=== PATIENT | male | born 1985 | race African-American/Black ===

== ENCOUNTER 2024-10-02 19:29 | Inpatient (IN) | payer SELFPAY ==
[~2024-10-02] VITALS: Ht 160 cm; Wt 56.4 kg
--- NOTE | 2024-10-02 20:45 | DVH ---
EXAM: XY CHEST TWO VIEWS ROUTINE CLINICAL HISTORY: cp TECHNIQUE: Frontal and lateral views of the chest WID: COMPARISON: None FINDINGS: Lines and tubes: None Chest: The heart size and pulmonary vasculature is within normal limits. No pleural effusion, pneumothorax, or consolidation. The osseous structures are grossly intact. IMPRESSION: No acute cardiopulmonary abnormality.
[2024-10-02 20:46] LABS: Hematocrit 44.4 % (41.0-53.0); Hemoglobin 14.9 g/dL (13.5-17.5); Mean Corpuscular Hemoglobin 30.9 pg (28.0-32.0); Mean Corpuscular Volume 92.3 fL (80.0-100.0); Nucleated Red Blood Cells % 0.1 %
[2024-10-02 20:49] LABS: Potassium 4.0 mmol/L (3.5-5.1); Sodium 137 mmol/L (136-145)
[2024-10-02 20:50] LABS: Anion Gap 13 (5-15); Carbon Dioxide 26 mmol/L (20-31)
[2024-10-02 20:55] LABS: BUN/Creatinine Ratio 13.7 (10.0-20.0); Blood Urea Nitrogen 14 mg/dL (9-23); Glucose 100 mg/dL (74-106)
[2024-10-02 21:18] LABS: Calcium 10.9 mg/dL (8.7-10.4); Chloride 98 mmol/L (98-107)
--- NOTE | 2024-10-02 21:25 | ED.PDOC ---
History of Present Illness HPI Comments 39-year-old male who comes in with chief complaint of chest tightness with dizziness and weakness. The patient also states that his measured his blood pressure was significantly elevated. The patient has a history of hypertension but currently not taking any medications. All the symptoms seemed to have started today. He was able to ambulate into the emergency department's without any difficulty. Chief Complaint: High Blood Pressure Time Seen by MD: 19:41 Reviewed Notes: Nurses Notes, Medications, Allergies (No allergies to medications) Allergies: Coded Allergies: NO KNOWN ALLERGIES (Unverified , 10/02/24) Information Source: Patient Mode of Arrival: Ambulatory Severity: Moderate Timing: Hours Duration: Since onset Prehospital treatment: None Associated signs and symptoms Tightness with dizziness and weakness Past Medical History PAST MEDICAL HISTORY: HTN Surgical History: Denies all surgeries Family History Family History: Reviewed,noncontributory to illness, No family hx of Cancer, No family hx of DM, No family hx of Heart alysia, No family hx of HTN, No family hx ofKidney alysia, No family hx of Liver alysia, No family hx of Lung alysia, No family hx of Stroke Social History Smoker: Non-Smoker Alcohol: Occasionally Drugs: Denies Drug Use Lives In: Home Constitutional: reports: weakness; denies: chills, diaphoresis, fatigue, fever, malaise, sweats, others EENTM: denies: blurred vision, double vision, ear bleeding, ear discharge, ear drainage, ear pain, ear ringing, eye pain, eye redness, hearing loss, mouth pain, mouth swelling, nasal discharge, nose bleeding, nose congestion, nose pain, photophobia, tearing, throat pain, throat swelling, voice changes, others Respiratory: denies: cough, hemoptysis, orthopnea, SOB at rest, shortness of breath, SOB with excertion, stridor, wheezing, others Cardiovascular: reports: chest pain; denies: dizzy spells, diaphoresis, Dyspnea on exertion, edema, irregular heart beat, left arm pain, lightheadedness, palpitations, PND, syncope, others Gastrointestinal: denies: abdomen distended, abdominal pain, blood streaked bowels, constipated, diarrhea, dysphagia, difficulty swallowing, hematemesis, melena, nausea, poor appetite, poor fluid intake, rectal bleeding, rectal pain, vomiting, others Genitourinary: denies: burning, dysuria, flank pain, frequency, hematuria, incontinence, penile discharge, penile sore, pain, testicle pain, testicle swelling, urgency, others Neurological: reports: dizziness; denies: fainting, headache, left sided numbness, left sided weakness, numbness, paresthesia, pre-existing deficit, right sided numbness, right sided weakness, seizure, speech problems, tingling, tremors, weakness, others Musculoskeletal: denies: back pain, gout, joint pain, joint swelling, muscle pain, muscle stiffness, neck pain, others Integumetry: denies: bruises, change in color, change in hair/nails, dryness, laceration, lesions, lumps, rash, wounds, others Allergic/Immunocompromised: denies: Difficulty Healing, Frequent Infections, Hives, Itching, others Hematologic/Lymphatic: denies: anemia, blood clots, easy bleeding, easy bruising, swollen glands, others Endocrine: denies: excessive hunger, excessive sweating, excessive thirst, excessive urination, flushing, intolerance to cold, intolerance to heat, unexplained weight gain, unexplained weight loss, others Psychiatric: denies: anxiety, bipolar disorder, depression, hopeless, panic disorder, schizophrenia, sleepless, suicidal, others Physical Exam General Appearance: Mild Distress HEENT: Normal ENT Inspection, Pharynx Normal, TMs Normal Neck: Full Range of Motion, Non-Tender, Normal, Normal Inspection Respiratory: Chest Non-Tender, Lungs Clear, No Accessory Muscle Use, No Respiratory Distress, Normal Breath Sounds Cardiovascular: No Edema, No JVD, No Murmur, No Gallop, Normal Peripheral Pulses, Regular Rate/Rhythm Breast Exam: Deferred Gastrointestinal: No Organomegaly, Non Tender, No Pulsatile Mass, Normal Bowel Sounds, Soft Genitalia: Deferred Pelvic: Deferred Rectal: Deferred Extremities: No calf tenderness, Normal capillary refill, Normal inspection, Normal range of motion, Non-tender, No pedal edema Musculoskeletal : Apperance: Normal Neurologic: 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 Was a procedure done?: No EKG EKG : Pulse Rate (adult): 83 [place]: Normal Cardiac Rhythm: NSR Hypertrophy: LAE ST: Nonsp Differential Dx Considerations may include: ACS, hypertensive crisis, hypertensive urgency X-Ray, Labs, Meds, VS Vital Signs Date Time Temp Pulse Resp B/P (MAP) Pulse Ox O2 Delivery O2 Flow Rate FiO2 10/02/24 20:37 83 10/02/24 19:29 99.4 96 18 188/128 (148) 100 99.4 Lab Test 10/02/24 20:25 Range/Units White Blood Count 5.8 4.4-10.8 10^3/uL Red Blood Count 4.81 4.5-5.90 10^6/uL Hemoglobin 14.9 13.5-17.5 g/dL Hematocrit 44.4 41.0-53.0 % Mean Corpuscular Volume 92.3 80.0-100.0 fL Mean Corpuscular Hemoglobin 30.9 28.0-32.0 pg Mean Corpuscular Hemoglobin Concent 33.5 32.0-36.0 g/dL Red Cell Distribution Width 16.6 H 11.8-14.3 % Platelet Count 207 140-450 10^3/uL Mean Platelet Volume 7.7 6.9-10.8 fL Neutrophils (%) (Auto) 74.7 37.0-80.0 % Lymphocytes (%) (Auto) 13.8 10.0-50.0 % Monocytes (%) (Auto) 10.5 0.0-12.0 % Eosinophils (%) (Auto) 0.2 0.0-7.0 % Basophils (%) (Auto) 0.8 0.0-2.0 % Neutrophils # (Auto) 4.4 1.6-8.6 10 ^3/uL Lymphocytes # (Auto) 0.8 0.4-5.4 10 ^3/uL Monocytes # (Auto) 0.6 0-1.3 10 ^3/uL Eosinophils # (Auto) 0 0-0.8 10 ^3/uL Basophils # (Auto) 0 0-0.2 10 ^3/uL Nucleated Red Blood Cells 0.1 % Sodium Level 137 136-145 mmol/L Potassium Level 4.0 3.5-5.1 mmol/L Chloride Level 98 98-107 mmol/L Carbon Dioxide Level 26 20-31 mmol/L Anion Gap 13 5-15 Blood Urea Nitrogen 14 9-23 mg/dL Creatinine 1.02 0.700-1.30 mg/dL Glomerular Filtration Rate Calc 96 >90 mL/min BUN/Creatinine Ratio 13.7 10.0-20.0 Serum Glucose 100 74-106 mg/dL Calcium Level 10.9 H 8.7-10.4 mg/dL Troponin I High Sensitivity < 3 L </=54 ng/L IV Hep-Lock was established. The patient came in with a blood pressure of 188/128 The patient was given hydralazine 20 mg IV push The patient's CBC is within normal limits The chemistry panel is within normal limits The troponin level is negative We are going to admit the patient with a diagnosis of hypertensive crisis Images Reviewed?: Images reviewed and evaluated by me Time of 1ST Reevaluation: 21:24 Reevaluation 1ST: Unchanged Patient Education/Counseling: Diagnosis, Treatment, Prognosis Family Education/Counseling: No Family Present SEPSIS Sepsis Screen Date sepsis recognized/suspect: Oct 02, 2024 Time Sepsis recognized/suspect: 1928 Recent Procedure: No On Antibiotic Therapy: No Respiratory Rate >20: No Heart Rate >90: No Temp<36 C (96.8 F) or >38.3 C: No SBP <90 or MAP <65 mmHG: No New Acute Mental Status Change: No Is the patient on CPAP, BIPAP,: No Physician Orders Chest Two Views Routine (10/02/24 20:16) Electrocardigram (10/02/24 20:16) Troponin-I Hs (10/02/24 21:16) Troponin-I Hs (10/02/24 23:16) Electrocardigram (10/02/24 21:16) Electrocardigram (10/02/24 23:16) Heplock Iv (10/02/24 20:47) Retail Operations Specialist (10/02/24 20:47) Blood Pressure (10/02/24 20:47) Pulse Oximetry (10/02/24 20:47) Vital Signs Date Time Temp Pulse Resp B/P (MAP) Pulse Ox O2 Delivery O2 Flow Rate FiO2 10/02/24 20:37 83 10/02/24 19:29 99.4 96 18 188/128 (148) 100 99.4 Laboratory Tests Test 10/02/24 20:25 White Blood Count 5.8 10^3/uL (4.4-10.8) Departure 1 Departure Time of Disposition: 21:24 Impression: Primary Impression: Hypertensive crisis Disposition: ADMITTED INPATIENT Admit to: Tele Condition: Fair Critical Care Note Critical Care Time?: Yes (45 min-critical care time only) Stability Stability form required: Yes Unstable for transfer: Telemetry monitoring (Telemetry monitoring required), ED Physician Assesment (Clinical assesment) Heart Score Heart Score: Heart Score Response (Comments) Value History Moderate Suspicious 1 EKG Normal 0 Age <45 0 Risk Factors 1 or 2 risk factors 1 Troponin Normal limit 0 Total 2 TAMIA PERES MD Oct 02, 2024 21:25
--- NOTE | 2024-10-02 23:39 | DVHHP2 ---
History of Present Illness Reason for Visit: Chest tightness History of Present Illness Patient is 39-year-old male with past medical history of hypertension, diagnosed last year during January time, came to the hospital with a chief complaint of feeling tightness of chest, mild dizziness associated with alleviated high blood pressure ranging around systolic 180 at home. That prompted visit to the hospital. As per patient the chest tightness resolved, however it is intermittent, located in epigastric region, dull in nature, not radiating, no alleviating or aggravating factor, not related to exertion. As per patient he was taking antihypertensive medication for few months, later ran out of medication and not taking medication for past 3-4 weeks. At the time of evaluation patient denied chest pain, shortness of breath, fever, chills, any other symptoms. Past medical history: Hypertension, not on any antihypertensive medication at this point. Past surgical history: None Family history: Lives with Allergy: None Home medication: Not taking any home medication at this point Personal history: Denying smoking cigarette or any recreational drug use. Review of Systems Constitutional: No: Fever, Chills, Sweats, Weakness, Malaise, Other Eyes: No: Pain, Vision change, Conjunctivae inflammation, Eyelid inflammation, Other, Redness ENT: No: Ear pain, Ear discharge, Nose pain, Nose discharge, Nose congestion, Mouth pain, Mouth swelling, Throat pain, Throat swelling, Other Cardiovascular: Lt Headedness Gastrointestinal: No: Nausea, Vomiting, Abdominal Pain, Diarrhea, Constipation, Melena, Hematochezia, Other Genitourinary: No Dysuria, No Frequency, No Incontinence, No Hematuria, No Retention, No Other Musculoskeletal: No: other, neck pain, shoulder pain, arm pain, back pain, hand pain, leg pain, foot pain Skin: No: Rash, Lesions, Jaundice, Bruising, Other Neurological: No: Weakness, Numbness, Incoordination, Change in speech, Confusion, Seizures, Other Allergies: Coded Allergies: NO KNOWN ALLERGIES (Unverified , 10/02/24) Exam Vital Signs Vital Signs Date Time Temp Pulse Resp B/P (MAP) Pulse Ox O2 Delivery O2 Flow Rate FiO2 10/02/24 21:25 83 10/02/24 19:29 99.4 18 188/128 (148) 100 99.4 Exam General Appearance: Cooperative. Well developed. Well nourished. NAD Head Exam: Normal inspection Neck Exam: Normal inspection. Non-tender. Normal alignment Pulmonary/Respiratory: Chest non-tender. Clear bilateral breath sounds Cardiovascular/Chest: Regular rate and rhythm. No murmurs. No JVD. Peripheral Pulses: 2+ Radial (R). 2+ Radial (L). 2+ Pedal (R). 2+ Pedal (L) Abdominal Exam: Normal bowel sounds. Soft. Nontender. No hepatospenomegaly. No masses Ankle Exam: Negative ankle edema Lower extremities: Negative lower extremity edema Neuro/Mental Status: A&O x4. Coherent Thoughts/Psych: Normal thought pattern. Appropriate mood and affect. Good judgement and insight Appearance: In no acute distress Skin Exam: Normal inspection. Normal color. Warm. Dry Labs/Xrays Labs Test 10/02/24 21:17 10/02/24 20:25 Range/Units Troponin I High Sensitivity < 3 L </=54 ng/L White Blood Count 5.8 4.4-10.8 10^3/uL Red Blood Count 4.81 4.5-5.90 10^6/uL Hemoglobin 14.9 13.5-17.5 g/dL Hematocrit 44.4 41.0-53.0 % Mean Corpuscular Volume 92.3 80.0-100.0 fL Mean Corpuscular Hemoglobin 30.9 28.0-32.0 pg Mean Corpuscular Hemoglobin Concent 33.5 32.0-36.0 g/dL Red Cell Distribution Width 16.6 H 11.8-14.3 % Platelet Count 207 140-450 10^3/uL Mean Platelet Volume 7.7 6.9-10.8 fL Neutrophils (%) (Auto) 74.7 37.0-80.0 % Lymphocytes (%) (Auto) 13.8 10.0-50.0 % Monocytes (%) (Auto) 10.5 0.0-12.0 % Eosinophils (%) (Auto) 0.2 0.0-7.0 % Basophils (%) (Auto) 0.8 0.0-2.0 % Neutrophils # (Auto) 4.4 1.6-8.6 10 ^3/uL Lymphocytes # (Auto) 0.8 0.4-5.4 10 ^3/uL Monocytes # (Auto) 0.6 0-1.3 10 ^3/uL Eosinophils # (Auto) 0 0-0.8 10 ^3/uL Basophils # (Auto) 0 0-0.2 10 ^3/uL Nucleated Red Blood Cells 0.1 % Sodium Level 137 136-145 mmol/L Potassium Level 4.0 3.5-5.1 mmol/L Chloride Level 98 98-107 mmol/L Carbon Dioxide Level 26 20-31 mmol/L Anion Gap 13 5-15 Blood Urea Nitrogen 14 9-23 mg/dL Creatinine 1.02 0.700-1.30 mg/dL Glomerular Filtration Rate Calc 96 >90 mL/min BUN/Creatinine Ratio 13.7 10.0-20.0 Serum Glucose 100 74-106 mg/dL Calcium Level 10.9 H 8.7-10.4 mg/dL Assessment/Plan Assessment/Plan Hypertensive crisis -continue amlodipine 5 mg p.o. daily and losartan 25 mg p.o. daily -prn labetalol 10 mg IV q.6 for blood pressure systolic greater than 160 -cardiac diet -echocardiogram pending -EKG sinus rhythm, no significant ST or T elevation -UDS negative Transaminitis -AST 114, ALT 70. -continue to monitor liver function. Repeat in a.m.. Dizziness likely due to uncontrolled hypertension -head CT scan: No acute intracranial abnormality -blood pressure under control with antihypertensive medication. Continue to monitor -cardiac diet Dyslipidemia Started atorvastatin 40 mg p.o. daily Given transaminitis monitor liver enzymes if elevation of enzymes 3 times proper limit stopped. PUD prophylaxis with Protonix DVT propxis not indicated: Patient is ambulating Goals of care discussed greater than 24 minutes, full code status. Plan discussed with Dr. Aguilar Plan discussed with: Patient, Other (RN) My Orders Orders - GIO MORALES Procedure Category Date Status Time Admit ADMIT 10/02/24 Transmitted 23:38 Nitroglycerin PHA 10/02/24 Transmitted Sublingual (Ntrostat 23:45 Morphine Sulfate PHA 10/02/24 Transmitted Injection 23:45 Oxygen By Nasal RT 10/02/24 Transmitted Cannula 23:38 [facility] 10/02/24 Transmitted 24 Hours 23:38 Emergency Dysrhythmia [facility] 10/02/24 Transmitted Protocol 23:38 Rhythm Strips Once [facility] 10/02/24 Transmitted Every Shift 23:38 Date of Service: Oct 02, 2024 Billing Provider: ANA CRISTINA AGUILAR MD Common Visit Codes: [id number] INP/OBS CARE (HIGH) GIO MORALES RESIDENT Oct 02, 2024 23:39
[2024-10-02] MEDS ORDERED: MORPHINE SULFATE INJ 2 MG/ml SYRG IV PRN (23:45)
[2024-10-02] MEDS ORDERED: NITROGLYCERIN 0.4 MG SL TAB SL PRN (23:45)
[2024-10-03] VITALS (10 sets, daily range): BP systolic 132–153; BP diastolic 91–110; PULSE 16–99; RESP 15–20; TEMP 96.8–98.2; O2SAT 98–100
[2024-10-03 00:35] LABS: Alanine Aminotransferase 70 U/L (7-40)
--- NOTE | 2024-10-03 01:05 | DVH ---
CLINICAL HISTORY: dizziness and hypertension TECHNIQUE: Helical imaging carried out from skull base to vertex without intravenous contrast. This e xam was performed according to our departmental dose optimization program. Up-to-date CT equipment an d radiation dose reduction techniques are utilized as appropriate. CTDIVol: 55.14 mGy DLP: 976.43 mGy-cm WID: COMPARISON: None FINDINGS: The ventricles and subarachnoid spaces are normal in size and configuration. There is no midline dot ft or mass effect. The pickens white matter interfaces are maintained. The basal cisterns are patent. Th ere is no evidence of acute intracranial hemorrhage or extra-axial fluid collection. The mastoid air cells and visualized paranasal sinuses are well-aerated. IMPRESSION: No acute intracranial abnormality.
[2024-10-03] MEDS: LABETALOL HCL 20 MG/4 ML VL IV ONE (01:50)
[2024-10-03] MEDS: hydrALAZINE HCL 20 MG/ML VL IV ONE (02:28)
[2024-10-03] MEDS ORDERED: LABETALOL HCL 20 MG/4 ML VL IV PRN ×2 (03:00→07:15)
[2024-10-03 04:12] LABS: Urine Protein, UAD 1+ (Negative)
[2024-10-03 04:31] LABS: Amphetamine Screen, Urine Neg (NEGATIVE)
[2024-10-03 04:33] LABS: Barbiturate Scree,Urine Neg (NEGATIVE); Benzodiazephine Screen, Urine Neg (NEGATIVE); Cannabinoid Screen, Urine Neg (NEGATIVE); Cocaine Screen, Urine Neg (NEGATIVE); Opiate Scree,Urine Neg (NEGATIVE); Phencyclidine Screen, Urine Neg (NEGATIVE)
[2024-10-03] MEDS ORDERED: AMLO1TAB22 PO (04:55)
[2024-10-03] MEDS: PANTOPRAZOLE 40 MG TAB PO SCH (05:47)
[2024-10-03 08:46] LABS: Triglycerides 173 mg/dL (< 150)
[2024-10-03 08:47] LABS: Albumin 4.7 g/dL (3.2-4.8); Alkaline Phosphatase 50 U/L (46-116); Anion Gap 13 (5-15); BUN/Creatinine Ratio 17.3 (10.0-20.0); Bilirubin, Total 1.1 mg/dL (0.2-1.0); Blood Urea Nitrogen 14 mg/dL (9-23); Calcium 10.3 mg/dL (8.7-10.4); Carbon Dioxide 25 mmol/L (20-31); Chloride 98 mmol/L (98-107); Glucose 104 mg/dL (74-106); Sodium 136 mmol/L (136-145); Total Protein 7.4 g/dL (5.7-8.2)
[2024-10-03 08:49] LABS: Alanine Aminotransferase 58 U/L (7-40); Cholesterol 281 mg/dL (< 200); HDL Cholesterol 103 mg/dL (40-59); Potassium 3.3 mmol/L (3.5-5.1)
[2024-10-03] MEDS: LOSARTAN POTASSIUM 25 MG TAB PO SCH (09:29)
[2024-10-03] MEDS: ATORVASTATIN 20 MG TAB PO ONE (09:45)
--- NOTE | 2024-10-03 12:07 | DVHPN2 ---
Assessment/Plan Assessment/Plan progress note 39 M with HTN admitted for hypertensive crisis, received meds and improved. he was taking meds prior but unable to the past couple of months due to insurance issue physical exam aox4 PERLLA MMM s1 s2 rrr no murmur clear breath sounds abdomen soft nontender no LE edema labs ekg imaging reviewed assessment and plan hypertensive crisis? resolved hypertension with HHD possible secondary HTN? hld start oral meds avoid hypotension educate on dash diet diet cardiac dvt ppx ambulatory Plan discussed with: Patient Date of Service: Oct 03, 2024 Billing Provider: TOOTIE CONLEY MD Common Visit Codes: [id number] INP/OBS CARE(HIGH) TOOTIE CONLEY MD Oct 03, 2024 12:07
--- NOTE | 2024-10-03 13:02 | ECG ---
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
--- NOTE | 2024-10-03 14:53 | DVHSR ---
APPROVED REPORT EXAM: Two-dimensional and M-mode echocardiogram with Doppler and color Doppler. Blood Pressure: 144/96 mmHg INDICATION uncontrolled hypertension RISK FACTORS Height: 63, Weight: 106 DIMENSIONS LVDd3.6 (3.8-5.7cm)LA (2D)3.1 (1.9-4.0cm)Aortic Root3.4 (2.0-3.7cm) LVDs2.4 (2.5-4.0cm)LA (MM) (1.9-4.0cm)Aortic Cusp Exc2.1 (1.5-2.0cm) EF (%) 62.0 (55-70%)Rt. Atrium3.5 (1.9-4.0cm)Asc. Aorta cm IVSd1.3 (0.7-1.1cm)RV (D) (1.8-2.4cm) PWd1.5 (0.7-1.1cm) Mitral Valve MitralMitral Stenosis E wave0.48m/sMV Mean GR.mmHg A wave0.50m/sMV Peak GR.mmHg E/A ratio1.02D MVAcm2 DECEL [id number] 1/2 [id number] IVRTmsDop MVA4.74cm2 Aortic Valve Aortic ValveAortic Stenosis V10.94m/Marc Mean GR.3mmHg V21.16m/Marc Peak GR.5mmHg LVOT Diameter2.0 (1.8-2.4cm)Doppler AVA2.54cm2 Pulmonic Valve V21.02m/s Tricuspid Valve TR Velocity2.07m/s [id number] Conclusion lvef 65% mild LVH normal rv function normalatria no severe valve abnormalities noted
[2024-10-04] VITALS (7 sets, daily range): BP systolic 125–138; BP diastolic 85–94; PULSE 69–99; RESP 15–18; TEMP 97.1–98.5; O2SAT 98–100
[2024-10-04 05:58] LABS: Chloride 99 mmol/L (98-107); Sodium 136 mmol/L (136-145)
[2024-10-04 05:59] LABS: Anion Gap 11 (5-15); Carbon Dioxide 26 mmol/L (20-31); Potassium 3.3 mmol/L (3.5-5.1)
[2024-10-04 06:05] LABS: BUN/Creatinine Ratio 17.0 (10.0-20.0); Blood Urea Nitrogen 15 mg/dL (9-23)
[2024-10-04 06:26] LABS: Calcium 10.4 mg/dL (8.7-10.4); Glucose 119 mg/dL (74-106)
[2024-10-04] MEDS ORDERED: MAA30LQ PO (12:44)
[2024-10-04] MEDS ORDERED: FAMO20TA10 PO (12:44)
[2024-10-04] MEDS ORDERED: LOSA-533 PO (12:44)
[2024-10-04] MEDS ORDERED: AMLO1TAB23 PO (12:44)
--- NOTE | 2024-10-04 12:47 | DVHDS2 ---
Discharge Summary Date of Admission Oct 02, 2024 at 23:38 Date of Discharge: Oct 04, 2024 Labs/Diagnostic Data: Laboratory Results Test 10/04/24 05:30 10/03/24 07:58 10/03/24 03:11 10/02/24 21:17 Sodium Level 136 mmol/L (136-145) Potassium Level 3.3 mmol/L (3.5-5.1) Chloride Level 99 mmol/L (98-107) Carbon Dioxide Level 26 mmol/L (20-31) Anion Gap 11 (5-15) Blood Urea Nitrogen 15 mg/dL (9-23) Creatinine 0.88 mg/dL (0.700-1.30) Glomerular Filtration Rate Calc 113 mL/min (>90) BUN/Creatinine Ratio 17.0 (10.0-20.0) Serum Glucose 119 mg/dL (74-106) Calcium Level 10.4 mg/dL (8.7-10.4) Hemoglobin A1c 5.1 % A1C (<5.7) Total Bilirubin 1.1 mg/dL (0.2-1.0) Aspartate Amino Transferase (AST) 93 U/L (13-40) Alanine Aminotransferase (ALT) 58 U/L (7-40) Alkaline Phosphatase 50 U/L (46-116) Total Protein 7.4 g/dL (5.7-8.2) Albumin 4.7 g/dL (3.2-4.8) Triglycerides Level 173 mg/dL (< 150) Cholesterol Level 281 mg/dL (< 200) LDL Cholesterol 152 mg/dL (< 100) HDL Cholesterol 103 mg/dL (40-59) Plasma/Serum Blood Alcohol < 3.0 mg/dL (<10) Urine Color Light-orange (Yellow) Urine Clarity Clear (Clear) Urine pH 6.0 (5.0-9.0) Urine Specific [place] 1.037 (1.001-1.035) Urine Protein 1+ (Negative) Urine Ketones 4+ (Negative) Urine Blood 1+ /uL (Negative) Urine Nitrite Negative (Negative) Urine Bilirubin 1+ (Negative) Urine Urobilinogen 3 mg/dL (Negative) Urine Leukocyte Esterase Negative /uL (Negative) Urine RBC 1 /hpf (0 - 3) Urine Microscopic WBC 1 /HPF (0-3) Urine Squamous Epithelial Cells Few /hpf (<5) Urine Bacteria None seen /hpf (None Seen) Urine Mucus Few (None Seen) Urine Glucose Trace mg/dL (Normal) Urine Opiates Screen Neg (NEGATIVE) Urine Fentanyl Screen Neg (NEGATIVE) Urine Barbiturates Screen Neg (NEGATIVE) Urine Phencyclidine Screen Neg (NEGATIVE) Urine Amphetamines Screen Neg (NEGATIVE) Urine Benzodiazepines Screen Neg (NEGATIVE) Urine Cocaine Screen Neg (NEGATIVE) Urine Cannabinoids Screen Neg (NEGATIVE) Troponin I High Sensitivity < 3 ng/L (</=54) Thyroid Stimulating Hormone (TSH) 3.48 uIU/mL (0.55-4.78) Test 10/02/24 20:25 White Blood Count 5.8 10^3/uL (4.4-10.8) Red Blood Count 4.81 10^6/uL (4.5-5.90) Hemoglobin 14.9 g/dL (13.5-17.5) Hematocrit 44.4 % (41.0-53.0) Mean Corpuscular Volume 92.3 fL (80.0-100.0) Mean Corpuscular Hemoglobin 30.9 pg (28.0-32.0) Mean Corpuscular Hemoglobin Concent 33.5 g/dL (32.0-36.0) Red Cell Distribution Width 16.6 % (11.8-14.3) Platelet Count 207 10^3/uL (140-450) Mean Platelet Volume 7.7 fL (6.9-10.8) Neutrophils (%) (Auto) 74.7 % (37.0-80.0) Lymphocytes (%) (Auto) 13.8 % (10.0-50.0) Monocytes (%) (Auto) 10.5 % (0.0-12.0) Eosinophils (%) (Auto) 0.2 % (0.0-7.0) Basophils (%) (Auto) 0.8 % (0.0-2.0) Neutrophils # (Auto) 4.4 10 ^3/uL (1.6-8.6) Lymphocytes # (Auto) 0.8 10 ^3/uL (0.4-5.4) Monocytes # (Auto) 0.6 10 ^3/uL (0-1.3) Eosinophils # (Auto) 0 10 ^3/uL (0-0.8) Basophils # (Auto) 0 10 ^3/uL (0-0.2) Nucleated Red Blood Cells 0.1 % Other Laboratory Tests 10/04/24 05:30 10/02/24 20:25 Brief Hx & Hospital Course: 39 M with HTN admitted for hypertensive crisis, received meds and improved. he was taking meds prior but unable to the past couple of months due to insurance issue. given iv antihypertensive, later switched to oral. patient will have dc clinic appointment, dc with oral meds. stable to dc home. educated to monitor BP and follow up. patient will need PCP and suggested to get insurance. Condition at Discharge: Good Final Diagnosis/Problems List hypertensive crisis? resolved hypertension with HHD possible secondary HTN? hld dyspepsia Discharge Disposition: Home Discharge Instruct/Medications Diet: Consistent carbohydrate, Cardiac 2g Na,low cholest Diet comment: DASH diet Activity: No Restrictions, As Tolerated Follow Up/Referral: dc clinic 2 weeks Medications: amlodipine losartan maalox pepcid Scheduled Amlodipine Besylate (Amlodipine Besylate), Unknown Dose PO DAILY, (Reported) Amlodipine Besylate (Amlodipine Besylate), 1 TAB PO DAILY Famotidine (Pepcid Tablet), 1 TAB PO BID Losartan Potassium (Losartan Potassium), 1 TAB PO DAILY Scheduled PRN Alum & Mag Hydrox-Simethicone (Maalox Plus), 30 ML PO Q8HR PRN Discharge Statement: "Patient was advised to return to the ER or call 911 if any headaches, dizziness, shortness of breath, chest pain, abdominal pain, bleeding, fevers, or worsening of medical condition. Patient was counseled about treatment plan, medications, possible side effects, patientverbalized understanding. All questions were answered to the best of my ability. This discharge took greater then 30 minutes in planning, reviewing documentation, counseling the patient, and discussing with other team members." ASSESSMENT ASSESSMENT Assessment hypertensive emergency, resolved Date of Service: Oct 04, 2024 Billing Provider: TOOTIE CONLEY MD Common Visit Codes: [id number] DISCH DAY >30min TOOTIE CONLEY MD Oct 04, 2024 12:47
[2024-10-04] MEDS: MAALOX PLUS or MAALOX 30 ML GT SCH (14:00)
[2024-10-04] MEDS ORDERED: ATORVASTATIN 20 MG TAB PO SCH (22:00)
== END 2024-10-04 15:00 | disposition home or self-care (01) | DRG 305 ==
LOC: ER 19:29 → OVERFLOW 23:38 → TELE-EAST 10-03 03:32
PROVIDERS: ADMIT Student in an Organized Health Care Education/Training Program; ATTEND Student in an Organized Health Care Education/Training Program
DX: I16.1 Hypertensive emergency (principal); E78.5 Hyperlipidemia, unspecified; R74.01 Elevation of levels of liver transaminase levels; Z79.899 Other long term (current) drug therapy
CPT/HCPCS: 36415; 70450; 71046; 80048; 80053; 80061; 80307; 80320; 81001; 83036; 84443; 84450; 84460; 84484; 85025; 93005; 93306; 96374; 96375; 99291; G0378

== ENCOUNTER 2024-10-15 16:42 | Inpatient (IN) | payer SELFPAY ==
[~2024-10-15] VITALS: Ht 160 cm; Wt 68.0 kg
[~2024-10-15 16:42] MED LIST: AMLO1TAB22 PO; AMLO1TAB23 PO; FAMO20TA10 PO; LOSA-533 PO; MAA30LQ PO
[2024-10-15 18:32] LABS: Hematocrit 46.7 % (41.0-53.0); Hemoglobin 15.7 g/dL (13.5-17.5); Mean Corpuscular Hemoglobin 30.5 pg (28.0-32.0); Mean Corpuscular Volume 90.8 fL (80.0-100.0); Nucleated Red Blood Cells % 0.0 %
[2024-10-15 18:52] LABS: Alanine Aminotransferase 90 U/L (7-40); Albumin 5.1 g/dL (3.2-4.8); Alkaline Phosphatase 58 U/L (46-116); Anion Gap 13 (5-15); BUN/Creatinine Ratio 15.3 (10.0-20.0); Bilirubin, Total 0.8 mg/dL (0.2-1.0); Blood Urea Nitrogen 13 mg/dL (9-23); Calcium 9.6 mg/dL (8.7-10.4); Carbon Dioxide 25 mmol/L (20-31); Chloride 101 mmol/L (98-107); Glucose 125 mg/dL (74-106); Lipase 301 U/L (12-53); Potassium 3.9 mmol/L (3.5-5.1); Sodium 139 mmol/L (136-145); Total Protein 8.1 g/dL (5.7-8.2)
--- NOTE | 2024-10-15 19:04 | DVH ---
Exam: CT CT AB PEL WO CON-NO ORAL OR IV History: abd pain Comparison Study: None Technique: Multidetector spiral CT of the abdomen was performed from lung bases to pubic symphysis. Imaging was performed without IV contrast. Axial, coronal and sagittal multiplanar reformats were ob tained from the axial data set by the technologist. Radiation Dose : 1. Abdomen/Pelvis: CTDIvol 262.25 mGy, DLP 254.41 mGy*cm. Findings: Evaluation of solid organs is limited due to lack of intravenous contrast use. Lung Bases: No acute or significant lung base finding. Normal heart size. No pleural or pericardial effusion. Liver: The liver is normal in size. No focal lesions. Gallbladder and Biliary Tree: Unremarkable Spleen: Unremarkable Pancreas: Fat stranding and phlegmon adjacent to the pancreatic tail may reflect pancreatitis. Adrenal Glands: Unremarkable Kidneys: Kidneys are grossly normal without calculi or hydronephrosis. Bladder: Grossly unremarkable for degree of distention. Bowel: The stomach is grossly normal in appearance. No evidence of bowel obstruction. Concentric wal l thickening of the proximal descending colon with adjacent fat stranding and phlegmon, suggestive of focal infectious/inflammatory colitis. No discernible abscess identified. The appendix is not visual ized; however, no secondary findings of acute appendicitis identified. Ascites: Absent Lymphadenopathy: No mesenteric, retroperitoneal or periportal lymphadenopathy. Abdominal Wall and Mesentery: Unremarkable. Vasculature: The visualized abdominal aorta is normal in size and caliber. Evaluation of abdominal a nd pelvic vessels is limited due to lack of intravenous contrast. Pelvic Organs: Unremarkable Musculoskeletal: No aggressive focal bony lesions, acute fractures or dislocation. IMPRESSION: 1. Concentric wall thickening of the proximal descending colon with adjacent fat stranding and phlegm on, suggestive of focal infectious/inflammatory colitis. No discernible abscess identified. 2. Fat stranding and phlegmon adjacent to the pancreatic tail may reflect pancreatitis. Recommend cor relation with lipase level. Radiation optimization: All CT scans at this facility use at least one of these dose optimization sean hniques: automated exposure control mA and/or kV adjustment per patient size (includes targeted exam s where dose is matched to clinical indication) or iterative reconstruction.
--- NOTE | 2024-10-15 19:41 | ED.PDOC ---
History of Present Illness HPI Comments 39-year-old male complaining of left upper quadrant abdominal pain which started today. No nausea no vomiting no fever. Nothing makes it better, nothing makes it worse. No new foods, no new medications. Abdominal history. Two Chief Complaint: Shortness of Breath Time Seen by MD: 17:23 Reviewed Notes: Nurses Notes Allergies: Coded Allergies: NO KNOWN ALLERGIES (Unverified , 10/02/24) Home Meds Active Scripts Losartan Potassium (Losartan Potassium) 25 Mg Tab, 1 TAB PO DAILY for 30 Days, #30 TAB 0 Refills Prov:TOOTIE CONLEY MD 10/04/24 Amlodipine Besylate (Amlodipine Besylate) 10 Mg Tab, 1 TAB PO DAILY for 30 Days, #30 TAB 0 Refills Prov:TOOTIE CONLEY MD 10/04/24 Famotidine (PEPCID TABLET) 20 Mg Tb, 1 TAB PO BID for 30 Days, #60 TAB 0 Refills Prov:TOOTIE CONLEY MD 10/04/24 Alum & Mag Hydrox-Simethicone (Maalox Plus) 30 Ml Ss, 30 ML PO Q8HR PRN for 30 Days, #1200 ML Prov:TOOTIE CONLEY MD 10/04/24 Reported Medications Amlodipine Besylate (Amlodipine Besylate) Unknown Strength Tab, PO DAILY, #30 TAB 5 Refills 10/03/24 Information Source: Patient Mode of Arrival: Ambulatory Past Medical History PAST MEDICAL HISTORY: HTN Surgical History: Denies all surgeries Family History Family History: Reviewed,noncontributory to illness, No family hx of Cancer, No family hx of DM, No family hx of Heart alysia, No family hx of HTN, No family hx ofKidney alysia, No family hx of Liver alysia, No family hx of Lung alysia, No family hx of Stroke Social History Smoker: Non-Smoker Alcohol: Occasionally Drugs: Denies Drug Use Lives In: Home Constitutional: denies: chills, diaphoresis, fatigue, fever, malaise, sweats, weakness, others EENTM: denies: blurred vision, double vision, ear bleeding, ear discharge, ear drainage, ear pain, ear ringing, eye pain, eye redness, hearing loss, mouth pain, mouth swelling, nasal discharge, nose bleeding, nose congestion, nose pain, photophobia, tearing, throat pain, throat swelling, voice changes, others Respiratory: denies: cough, hemoptysis, orthopnea, SOB at rest, shortness of breath, SOB with excertion, stridor, wheezing, others Cardiovascular: denies: chest pain, dizzy spells, diaphoresis, Dyspnea on exertion, edema, irregular heart beat, left arm pain, lightheadedness, palpitations, PND, syncope, others Gastrointestinal: reports: abdominal pain; denies: abdomen distended, blood streaked bowels, constipated, diarrhea, dysphagia, difficulty swallowing, hematemesis, melena, nausea, poor appetite, poor fluid intake, rectal bleeding, rectal pain, vomiting, others Genitourinary: denies: burning, dysuria, flank pain, frequency, hematuria, incontinence, penile discharge, penile sore, pain, testicle pain, testicle swelling, urgency, others Neurological: denies: dizziness, fainting, headache, left sided numbness, left sided weakness, numbness, paresthesia, pre-existing deficit, right sided numbness, right sided weakness, seizure, speech problems, tingling, tremors, weakness, others Musculoskeletal: denies: back pain, gout, joint pain, joint swelling, muscle pain, muscle stiffness, neck pain, others Integumetry: denies: bruises, change in color, change in hair/nails, dryness, laceration, lesions, lumps, rash, wounds, others Allergic/Immunocompromised: denies: Difficulty Healing, Frequent Infections, Hives, Itching, others Physical Exam General Appearance: No Apparent Distress, Normal HEENT: Normal ENT Inspection, Pharynx Normal, TMs Normal Neck: Full Range of Motion, Non-Tender, Normal, Normal Inspection Respiratory: Chest Non-Tender, Lungs Clear, No Accessory Muscle Use, No Respiratory Distress, Normal Breath Sounds Cardiovascular: No Edema, No JVD, No Murmur, No Gallop, Normal Peripheral Pulses, Regular Rate/Rhythm Breast Exam: Deferred Gastrointestinal: Epigastric (Tender to palpation), LUQ (Tender to palpation), No Organomegaly, No Pulsatile Mass, Normal Bowel Sounds, Soft Genitalia: Deferred Pelvic: Deferred Rectal: Deferred Extremities: No calf tenderness, Normal capillary refill, Normal inspection, N ormal range of motion, Non-tender, No pedal edema Musculoskeletal : Apperance: Normal Neurologic: Alert, 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 Was a procedure done?: No Differential Dx Considerations may include: Small bowel obstruction, gastroenteritis, diarrhea, pancreatitis, cholecystitis, cholelithiasis. X-Ray, Labs, Meds, VS Vital Signs Date Time Temp Pulse Resp B/P (MAP) Pulse Ox O2 Delivery O2 Flow Rate FiO2 10/15/24 17:21 112 10/15/24 17:00 98.0 106 18 147/108 (121) 100 98.0 Lab Test 10/15/24 18:14 Range/Units White Blood Count 12.3 H 4.4-10.8 10^3/uL Red Blood Count 5.15 4.5-5.90 10^6/uL Hemoglobin 15.7 13.5-17.5 g/dL Hematocrit 46.7 41.0-53.0 % Mean Corpuscular Volume 90.8 80.0-100.0 fL Mean Corpuscular Hemoglobin 30.5 28.0-32.0 pg Mean Corpuscular Hemoglobin Concent 33.6 32.0-36.0 g/dL Red Cell Distribution Width 15.7 H 11.8-14.3 % Platelet Count 411 140-450 10^3/uL Mean Platelet Volume 7.4 6.9-10.8 fL Neutrophils (%) (Auto) 88.5 H 37.0-80.0 % Lymphocytes (%) (Auto) 4.1 L 10.0-50.0 % Monocytes (%) (Auto) 7.1 0.0-12.0 % Eosinophils (%) (Auto) 0.1 0.0-7.0 % Basophils (%) (Auto) 0.2 0.0-2.0 % Neutrophils # (Auto) 10.9 H 1.6-8.6 10 ^3/uL Lymphocytes # (Auto) 0.5 0.4-5.4 10 ^3/uL Monocytes # (Auto) 0.9 0-1.3 10 ^3/uL Eosinophils # (Auto) 0 0-0.8 10 ^3/uL Basophils # (Auto) 0 0-0.2 10 ^3/uL Nucleated Red Blood Cells 0.0 % Sodium Level 139 136-145 mmol/L Potassium Level 3.9 3.5-5.1 mmol/L Chloride Level 101 98-107 mmol/L Carbon Dioxide Level 25 20-31 mmol/L Anion Gap 13 5-15 Blood Urea Nitrogen 13 9-23 mg/dL Creatinine 0.85 0.700-1.30 mg/dL Glomerular Filtration Rate Calc 114 >90 mL/min BUN/Creatinine Ratio 15.3 10.0-20.0 Serum Glucose 125 H 74-106 mg/dL Calcium Level 9.6 8.7-10.4 mg/dL Total Bilirubin 0.8 0.2-1.0 mg/dL Aspartate Amino Transferase (AST) 76 H 13-40 U/L Alanine Aminotransferase (ALT) 90 H 7-40 U/L Alkaline Phosphatase 58 46-116 U/L Total Protein 8.1 5.7-8.2 g/dL Albumin 5.1 H 3.2-4.8 g/dL Lipase 301 H 12-53 U/L X-Ray, Labs, Meds, VS Comment Patient will be admitted for acute pancreatitis Started on NS bolus Patient be started on Rocephin and Flagyl Time of 1ST Reevaluation: 19:41 Reevaluation 1ST: Improved Patient Education/Counseling: Diagnosis, Treatment, Need For Follow Up (Follow up in the emergency department in the next 24-48 hours if symptoms worsen. It was advised to follow up with your primary care doctor in the next 3-4 days for further evaluation.) Family Education/Counseling: Diagnosis SEPSIS Sepsis Screen Date sepsis recognized/suspect: Oct 15, 2024 Time Sepsis recognized/suspect: 170 Recent Procedure: No On Antibiotic Therapy: No Respiratory Rate >20: No Heart Rate >90: Yes Temp<36 C (96.8 F) or >38.3 C: No SBP <90 or MAP <65 mmHG: No New Acute Mental Status Change: No Is the patient on CPAP, BIPAP,: No Physician Orders Electrocardigram (10/15/24 17:28) Urinalysis (10/15/24 18:11) Ct Ab Pel Wo Con-No Oral Or Iv (10/15/24 18:11) Sodium Chloride 0.9% (10/15/24 19:15) Metronidazole Ivpb Flagyl (10/15/24 19:45) Vital Signs Date Time Temp Pulse Resp B/P (MAP) Pulse Ox O2 Delivery O2 Flow Rate FiO2 10/15/24 17:21 112 10/15/24 17:00 98.0 106 18 147/108 (121) 100 98.0 Laboratory Tests Test 10/15/24 18:14 White Blood Count 12.3 10^3/uL (4.4-10.8) H Departure 1 Departure Time of Disposition: 19:40 Impression: Primary Impression: Pancreatitis Qualified Codes: K85.90 - Acute pancreatitis without necrosis or infection, unspecified Disposition: ADMITTED INPATIENT Condition: Fair Discharged With: Self Critical Care Note Critical Care Time?: No Stability Stability form required: No Heart Score Heart Score: Heart Score Response (Comments) Value History N/A 0 EKG N/A 0 Age N/A 0 Risk Factors N/A 0 Troponin N/A 0 Total 0 ROXANNA COEP Oct 15, 2024 19:41
[2024-10-15] MEDS ORDERED: ACETAMINOPHEN 325 MG TAB PO PRN (20:00)
[2024-10-15] MEDS: SODIUM CHLORIDE 0.9% 1,000 ML IV ONE ×2 (20:00→21:34)
[2024-10-15 21:06] LABS: Lactic Acid w/Reflex 3.2 mmol/L (0.4-2.0)
[2024-10-15] MEDS: HYDROcodone-ACET 5/325MG TAB PO ONE (21:34)
[2024-10-15] MEDS: MORPHINE SULFATE INJ 2 MG/ml SYRG IV PRN (21:43)
[2024-10-15] MEDS: ONDANSETRON HCL 4 MG/2 ML VIAL IV PRN (21:43)
--- NOTE | 2024-10-15 21:50 | DVHHP2 ---
History of Present Illness Reason for Visit: Abdominal pain History of Present Illness 39-year-old male presents for evaluation of abdominal pain. Patient reports having a fall two days ago where he landed on a side rail hitting his left ribs. He states that since then he has been having pain that radiates from left to right. Denies nausea or vomiting. No diarrhea. No fever or chills. Past Medical History Hypertension Past Surgical History Denies Family History Noncontributory Smoke: No ALCOHOL: occassional Drugs: None Lives: with Family Review of Systems Review of Systems Review of systems are currently negative otherwise addressed in HPI. Allergies: Coded Allergies: NO KNOWN ALLERGIES (Unverified , 10/02/24) Medications Current Medications Medications Dose Ordered Sig/Jose Route Start Time Stop Time Status Last Admin Dose Admin Metronidazole 100 ml @ 100 mls/hr Q8H IV 10/15/24 20:30 10/15/24 21:35 100 MLS/HR Ceftriaxone Sodium 50 ml @ 100 mls/hr DAILY@09 IV 10/16/24 09:00 Pantoprazole Sodium 40 mg DAILY IV 10/16/24 10:00 Losartan Potassium 25 mg DAILY PO 10/16/24 10:00 Amlodipine Besylate 5 mg DAILY PO 10/16/24 10:00 Acetaminophen/ Hydrocodone Bitart 1 tab Q4HP PRN PO 10/15/24 20:00 Ondansetron HCl 4 mg Q4HP PRN IV 10/15/24 20:00 Acetaminophen 650 mg Q6HP PRN PO 10/15/24 20:00 Morphine Sulfate 2 mg Q4HPRN PRN IV 10/15/24 20:00 Exam Vital Signs Vital Signs Date Time Temp Pulse Resp B/P (MAP) Pulse Ox O2 Delivery O2 Flow Rate FiO2 10/15/24 21:35 97.5 100 20 149/99 (116) 98 97.5 10/15/24 19:43 Room Air Exam Gen: 39-year-old male in mild distress Skin: Warm, dry, normal color and texture, no rash. HEENT: Normocephalic atraumatic, mucous membranes moist and pink. Neck: Cervical and supraclavicular nodes normal without enlargement, trachea is midline, thyroid gland is normal without masses. Pulmonary: Clear to auscultation and percussion bilaterally. Cardiac: Regular rate and rhythm. No murmur Abdomen: Soft, left upper quadrant tenderness, nondistended, bowel sounds prese nt all 4 quadrants, no guarding, no rigidity, no organomegaly. Extremities: No cyanosis, clubbing, no edema Neuro: Cranial nerves II through XII grossly intact, normal affect and speech, no focal motor deficits. Labs/Xrays ORDERING PHYSICIAN: ROXANNA COE PROCEDURE(s): ABPL - CT AB PEL WO CON-NO ORAL OR IV REASON: abd pain ORDER NUMBER(s): [id number], ACCESSION NUMBER(s): [id number] Exam: CT CT AB PEL WO CON-NO ORAL OR IV History: abd pain Comparison Study: None Technique: Multidetector spiral CT of the abdomen was performed from lung bases to pubic symphysis. Imaging was performed without IV contrast. Axial, coronal and sagittal multiplanar reformats were obtained from the axial data set by the technologist. Radiation Dose : 1. Abdomen/Pelvis: CTDIvol 262.25 mGy, DLP 254.41 mGy*cm. Findings: Evaluation of solid organs is limited due to lack of intravenous contrast use. Lung Bases: No acute or significant lung base finding. Normal heart size. No pleural or pericardial effusion. Liver: The liver is normal in size. No focal lesions. Gallbladder and Biliary Tree: Unremarkable Spleen: Unremarkable Pancreas: Fat stranding and phlegmon adjacent to the pancreatic tail may reflect pancreatitis. Adrenal Glands: Unremarkable Kidneys: Kidneys are grossly normal without calculi or hydronephrosis. Bladder: Grossly unremarkable for degree of distention. Bowel: The stomach is grossly normal in appearance. No evidence of bowel obstruction. Concentric wall thickening of the proximal descending colon with adjacent fat stranding and phlegmon, suggestive of focal infectious/inflammatory colitis. No discernible abscess identified. The appendix is not visualized; h owever, no secondary findings of acute appendicitis identified. Ascites: Absent Lymphadenopathy: No mesenteric, retroperitoneal or periportal lymphadenopathy. Abdominal Wall and Mesentery: Unremarkable. Vasculature: The visualized abdominal aorta is normal in size and caliber. Evaluation of abdominal and pelvic vessels is limited due to lack of intravenous contrast. Pelvic Organs: Unremarkable Musculoskeletal: No aggressive focal bony lesions, acute fractures or dislocation. IMPRESSION: 1. Concentric wall thickening of the proximal descending colon with adjacent fat stranding and phlegmon, suggestive of focal infectious/inflammatory colitis. No discernible abscess identified. 2. Fat stranding and phlegmon adjacent to the pancreatic tail may reflect pancreatitis. Recommend correlation with lipase level. Radiation optimization: All CT scans at this facility use at least one of these dose optimization techniques: automated exposure control mA and/or kV adjustment per patient size (includes targeted exams where dose is matched to clinical indication) or iterative reconstruction. Labs Test 10/15/24 20:00 10/15/24 18:14 Range/Units Lactic Acid Level 3.2 *H 0.4-2.0 mmol/L White Blood Count 12.3 H 4.4-10.8 10^3/uL Red Blood Count 5.15 4.5-5.90 10^6/uL Hemoglobin 15.7 13.5-17.5 g/dL Hematocrit 46.7 41.0-53.0 % Mean Corpuscular Volume 90.8 80.0-100.0 fL Mean Corpuscular Hemoglobin 30.5 28.0-32.0 pg Mean Corpuscular Hemoglobin Concent 33.6 32.0-36.0 g/dL Red Cell Distribution Width 15.7 H 11.8-14.3 % Platelet Count 411 140-450 10^3/uL Mean Platelet Volume 7.4 6.9-10.8 fL Neutrophils (%) (Auto) 88.5 H 37.0-80.0 % Lymphocytes (%) (Auto) 4.1 L 10.0-50.0 % Monocytes (%) (Auto) 7.1 0.0-12.0 % Eosinophils (%) (Auto) 0.1 0.0-7.0 % Basophils (%) (Auto) 0.2 0.0-2.0 % Neutrophils # (Auto) 10.9 H 1.6-8.6 10 ^3/uL Lymphocytes # (Auto) 0.5 0.4-5.4 10 ^3/uL Monocytes # (Auto) 0.9 0-1.3 10 ^3/uL Eosinophils # (Auto) 0 0-0.8 10 ^3/uL Basophils # (Auto) 0 0-0.2 10 ^3/uL Nucleated Red Blood Cells 0.0 % Sodium Level 139 136-145 mmol/L Potassium Level 3.9 3.5-5.1 mmol/L Chloride Level 101 98-107 mmol/L Carbon Dioxide Level 25 20-31 mmol/L Anion Gap 13 5-15 Blood Urea Nitrogen 13 9-23 mg/dL Creatinine 0.85 0.700-1.30 mg/dL Glomerular Filtration Rate Calc 114 >90 mL/min BUN/Creatinine Ratio 15.3 10.0-20.0 Serum Glucose 125 H 74-106 mg/dL Calcium Level 9.6 8.7-10.4 mg/dL Total Bilirubin 0.8 0.2-1.0 mg/dL Aspartate Amino Transferase (AST) 76 H 13-40 U/L Alanine Aminotransferase (ALT) 90 H 7-40 U/L Alkaline Phosphatase 58 46-116 U/L Total Protein 8.1 5.7-8.2 g/dL Albumin 5.1 H 3.2-4.8 g/dL Lipase 301 H 12-53 U/L SEPSIS Sepsis Screen Date sepsis recognized/suspect: Oct 15, 2024 Time Sepsis recognized/suspect: 1946 Recent Procedure: No On Antibiotic Therapy: No Respiratory Rate >20: No Heart Rate >90: Yes Temp<36 C (96.8 F) or >38.3 C: No SBP <90 or MAP <65 mmHG: No New Acute Mental Status Change: No Is the patient on CPAP, BIPAP,: No Physician Orders Electrocardigram (10/15/24 17:28) Urinalysis (10/15/24 18:11) Ct Ab Pel Wo Con-No Oral Or Iv (10/15/24 18:11) * Gi D[facility] Loan Approver (10/15/24 19:49) Sodium Chloride 0.9% (10/15/24 20:00) Metronidazole 500mg/100ml (Flagyl 500mg/ (10/15/24 20:30) Ceftriaxone 1gm/50ml D5w (Rocephin) (10/16/24 09:00) Stool Bacterial Culture (10/15/24 19:49) Pantoprazole (Protonix) (10/16/24 10:00) Losartan Tablet (Cozaar Tablet) (10/16/24 10:00) Amlodipine Tablet (Norvasc Tablet) (10/16/24 10:00) Npo Except For Medications (10/15/24 19:49) Npo (Nothing By Mouth) Diet (10/15/24 Breakfast) Basic Metabolic Panel (10/16/24 04:00) Admit (10/15/24 19:49) Hydrocodone-Acet 5/325mg Tab ([place] 5/32 (10/15/24 20:00) Ondansetron Hcl (Zofran) (10/15/24 20:00) Complete Blood Count (10/16/24 04:00) Condition: Stable (10/15/24 19:49) Acetaminophen Tablet (Tylenol Tablet) (10/15/24 20:00) Bedrest With Bathroom Privileg (10/15/24 19:49) Morphine Sulfate Injection (10/15/24 20:00) NS (10/15/24 21:45) Lactic Acid W/ Reflex Order (10/16/24 04:00) Vital Signs Date Time Temp Pulse Resp B/P (MAP) Pulse Ox O2 Delivery O2 Flow Rate FiO2 10/15/24 21:35 97.5 100 20 149/99 (116) 98 97.5 10/15/24 19:43 105 20 100 Room Air 10/15/24 19:43 98.2 105 20 143/102 (116) 100 98.2 10/15/24 17:21 112 10/15/24 17:00 98.0 106 18 147/108 (121) 100 98.0 Laboratory Tests Test 10/15/24 18:14 10/15/24 20:00 White Blood Count 12.3 10^3/uL (4.4-10.8) H Lactic Acid Level 3.2 mmol/L (0.4-2.0) *H Medications Medications Dose Ordered Sig/Jose Route Start Time Stop Time Status Last Admin Dose Admin Metronidazole 100 ml @ 100 mls/hr Q8H IV 10/15/24 20:30 10/15/24 21:35 100 MLS/HR Sodium Chloride 1,000 ml @ 1,000 mls/hr Q1H ONCE IV 10/15/24 19:15 10/15/24 20:14 DC 10/15/24 21:34 1,000 MLS/HR Assessment/Plan Assessment/Plan Assessment Acute abdominal pain ? Acute colitis ? Acute pancreatitis Leukocytosis Plan Admit the patient to [facility] to the hospitalist Akbar/Flagyl Maintenance IV fluids GI consult Continue treatment per orders. Plan discussed with: Patient My Orders Orders - JOSHUA OROURKE Procedure Category Date Status Time * Gi D[facility] Loan Approver CONS 10/15/24 Transmitted 19:49 Sodium Chloride 0.9% PHA 10/15/24 In Process 20:00 Metronidazole PHA 10/15/24 In Process 500mg/100ml (Flagyl 20:30 Ceftriaxone 1gm/50ml PHA 10/16/24 In Process D5w (Rocephin) 09:00 Stool Bacterial LIZBETH 10/15/24 Logged Culture 19:49 Pantoprazole PHA 10/16/24 In Process (Protonix) 10:00 Losartan Tablet PHA 10/16/24 In Process (Cozaar Tablet) 10:00 Amlodipine Tablet PHA 10/16/24 In Process (Norvasc Tablet) 10:00 Npo Except For LUKE 10/15/24 In Process Medications 19:49 Npo (Nothing By DIET 10/15/24 Transmitted Mouth) Diet Breakfast Basic Metabolic Panel LAB 10/16/24 Verified 04:00 Admit ADMIT 10/15/24 Transmitted 19:49 Hydrocodone-Acet PHA 10/15/24 In Process 5/325mg Tab ([place] 20:00 Ondansetron Hcl PHA 10/15/24 In Process (Zofran) 20:00 Complete Blood Count LAB 10/16/24 Verified 04:00 Condition: Stable LUKE 10/15/24 In Process 19:49 Acetaminophen Tablet PHA 10/15/24 In Process (Tylenol Tablet) 20:00 Bedrest With Bathroom LUKE 10/15/24 In Process Privileg 19:49 Morphine Sulfate PHA 10/15/24 In Process Injection 20:00 NS PHA 10/15/24 Verified 21:45 Lactic Acid W/ Reflex LAB 10/16/24 Verified Order 04:00 Date of Service: Oct 15, 2024 Billing Provider: JOSHUA OROURKE Common Visit Codes: [id number] INP/OBS CARE (MOD) JOSHUA OROURKE Oct 15, 2024 21:50
[2024-10-15 22:00] VITALS: BP 153/101; PULSE 96; RESP 16; TEMP 98.4; O2SAT 100
[2024-10-15 22:20] VITALS: BP 153/101; PULSE 96; RESP 18; RESP 19; TEMP 98.4; O2SAT 100
[2024-10-15] MEDS: SODIUM CHLORIDE 0.9% 500 ML IV ONE (22:37)
[2024-10-15] MEDS: HYDROcodone-ACET 5/325MG TAB PO PRN (23:08)
[2024-10-16 01:00] VITALS: BP 155/109; PULSE 102; RESP 16; TEMP 98.6; O2SAT 99
[2024-10-16 05:00] VITALS: BP 138/94; PULSE 96; RESP 16; TEMP 98.5; O2SAT 99
[2024-10-16 06:48] LABS: Hematocrit 40.9 % (41.0-53.0); Hemoglobin 13.9 g/dL (13.5-17.5); Mean Corpuscular Hemoglobin 30.7 pg (28.0-32.0); Mean Corpuscular Volume 90.4 fL (80.0-100.0); Nucleated Red Blood Cells % 0.0 %
[2024-10-16 06:49] LABS: Chloride 102 mmol/L (98-107); Potassium 3.5 mmol/L (3.5-5.1); Sodium 137 mmol/L (136-145)
[2024-10-16 06:50] LABS: Anion Gap 12 (5-15); Carbon Dioxide 23 mmol/L (20-31)
[2024-10-16 06:52] LABS: Calcium 8.6 mg/dL (8.7-10.4)
[2024-10-16 06:55] LABS: BUN/Creatinine Ratio 12.5 (10.0-20.0); Blood Urea Nitrogen 10 mg/dL (9-23)
[2024-10-16 06:56] LABS: Glucose 129 mg/dL (74-106)
[2024-10-16] MEDS: PANTOPRAZOLE 40 MG/10 ML VIAL INJ IV SCH (09:00)
[2024-10-16] MEDS: cefTRIAXone 1GM/50ML D5W 50 ML IV SCH (09:00)
[2024-10-16] MEDS: LOSARTAN POTASSIUM 25 MG TAB PO SCH (09:29)
[2024-10-16 09:30] VITALS: BP 131/98; PULSE 107; RESP 18; TEMP 98.3; O2SAT 100
--- NOTE | 2024-10-16 09:38 | ECG ---
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
[2024-10-16 12:18] LABS: Albumin 4.2 g/dL (3.2-4.8); Alkaline Phosphatase 59.0 U/L (46-116); Bilirubin, Total 1.0 mg/dL (0.2-1.0); Total Protein 6.7 g/dL (5.7-8.2)
[2024-10-16 12:21] LABS: Alanine Aminotransferase 68.0 U/L (7-40); Bilirubin, Direct 0.4 mg/dL (<0.3)
[2024-10-16 12:32] LABS: Lipase 268.0 U/L (12-53)
[2024-10-16 12:46] VITALS: BP 141/101; PULSE 104; RESP 18; TEMP 98.4; O2SAT 100
--- NOTE | 2024-10-16 13:39 | DVHINCON2 ---
GI Consult Consult Note GI consult note Date of Consultation: 10/16/2024 Chief Complaint: Colitis questionable pancreatitis Referring Physician: Vimal RUSSELL H&P: 39-year-old male presents with evaluation of abdominal pain for two days. Patient reports falling two days ago and he landed on his left side, and has left rib pain also. No shortness of breath. Denies nausea or vomiting. Denies symptoms of diarrhea. No melena or red blood in stool. Patient admits to alcohol use, quit one-week ago. Patient has history of increased cholesterol Past Medical History: Hypertension, anxiety Past Surgical History: Denies Social History: NO smoking, occasional drinking ETOH and denies use of illegal drugs. Family History: Noncontributory Review of Systems: Constitutional: no fever, chill, weight loss HEENT: no eye pain, no hearing loss, no oral lesion, no scleral icterus Heart: no chest pain, no chest pressure Lung: no cough, no dyspnea with exertion Abdomen: see HPI Physical exam: General: NAD, AAOX3 Chest: lung montgomery clear to auscultation Heart: RRR, no murmur Abdomen: Left upper abdomen tenderness to palpation, +BS Labs: Labs Test 10/16/24 05:06 Range/Units White Blood Count 11.0 H 4.4-10.8 10^3/uL Red Blood Count 4.52 4.5-5.90 10^6/uL Hemoglobin 13.9 13.5-17.5 g/dL Hematocrit 40.9 #L 41.0-53.0 % Mean Corpuscular Volume 90.4 80.0-100.0 fL Mean Corpuscular Hemoglobin 30.7 28.0-32.0 pg Mean Corpuscular Hemoglobin Concent 34.0 32.0-36.0 g/dL Red Cell Distribution Width 16.0 H 11.8-14.3 % Platelet Count 319 140-450 10^3/uL Mean Platelet Volume 8.0 6.9-10.8 fL Neutrophils (%) (Auto) 84.1 H 37.0-80.0 % Lymphocytes (%) (Auto) 5.8 L 10.0-50.0 % Monocytes (%) (Auto) 8.6 0.0-12.0 % Eosinophils (%) (Auto) 1.2 0.0-7.0 % Basophils (%) (Auto) 0.3 0.0-2.0 % Neutrophils # (Auto) 9.2 H 1.6-8.6 10 ^3/uL Lymphocytes # (Auto) 0.6 0.4-5.4 10 ^3/uL Monocytes # (Auto) 0.9 0-1.3 10 ^3/uL Eosinophils # (Auto) 0.1 0-0.8 10 ^3/uL Basophils # (Auto) 0 0-0.2 10 ^3/uL Nucleated Red Blood Cells 0.0 % Sodium Level 137 136-145 mmol/L Potassium Level 3.5 3.5-5.1 mmol/L Chloride Level 102 98-107 mmol/L Carbon Dioxide Level 23 20-31 mmol/L Anion Gap 12 5-15 Blood Urea Nitrogen 10 9-23 mg/dL Creatinine 0.80 0.700-1.30 mg/dL Glomerular Filtration Rate Calc 116 >90 mL/min BUN/Creatinine Ratio 12.5 10.0-20.0 Serum Glucose 129 H 74-106 mg/dL Lactic Acid Level 1.9 0.4-2.0 mmol/L Calcium Level 8.6 L 8.7-10.4 mg/dL Total Bilirubin 1.0 0.2-1.0 mg/dL Direct Bilirubin 0.4 H <0.3 mg/dL Aspartate Amino Transferase (AST) 53 H 13-40 U/L Alanine Aminotransferase (ALT) 68 H 7-40 U/L Alkaline Phosphatase 59 46-116 U/L Total Protein 6.7 5.7-8.2 g/dL Albumin 4.2 3.2-4.8 g/dL Lipase 268 H 12-53 U/L Imaging: CT abdomen pelvis IMPRESSION: 1. Concentric wall thickening of the proximal descending colon with adjacent fat stranding and phlegmon, suggestive of focal infectious/inflammatory colitis. No discernible abscess identified. 2. Fat stranding and phlegmon adjacent to the pancreatic tail may reflect pancreatitis. Recommend correlation with lipase level. Assessment: Abdominal pain Possible colitis pancreatitis Status post fall Plan: Discussed with Dr. Cedillo Hepatitis panel, lipid panel. Labs in a.m. for CBC CMP Abdominal ultrasound NPO Continue antibiotics We will continue to follow patient Thank you for this consult Date of Service: Oct 16, 2024 Billing Provider: FERN ORNELAS Common Visit Codes: CONSULT ONLY Consultation Codes: [id number] CONSULT <60MIN FERN ORNELAS Oct 16, 2024 13:39
[2024-10-16] MEDS: LACTATED RINGER'S 1,000 ML IV SCH (14:50)
--- NOTE | 2024-10-16 15:03 | DVH ---
INDICATION: elevated LFTs TECHNIQUE: Multiple real-time sonographic images were obtained of the right upper quadrant. COMPARISON: None FINDINGS: The liver demonstrates increased echotexture without focal mass lesions. The liver measures 17 cm. There is no intrahepatic or extrahepatic ductal dilatation. The common duct measures 5 mm. Trace ascites. The gallbladder is without evidence of stone or sludge. The gallbladder wall measures 2 mm and is wi thin normal limits. The right kidney measures 9.3 cm. The right kidney is normal in contour, size, and shape. The echoge nicity is normal. There is no hydronephrosis. The pancreas is not well visualized due to overlying bowel gas. IMPRESSION: No sonographic evidence of gallstones or acute cholecystitis. Hepatic steatosis. Trace ascites.
[2024-10-16 15:23] LABS: Urine Protein, UAD 1+ (Negative)
[2024-10-16 16:52] VITALS: BP 144/109; PULSE 113; RESP 18; TEMP 97.6; O2SAT 100
--- NOTE | 2024-10-16 17:31 | DVHPNRES ---
Progress Note Date Seen: Oct 16, 2024 Resident Creating Document: BUD CHANG RESIDENT Medical Necessity Reason Pt with a Central, PICC or Fol: No Subjective Review of Systems 39-year-old male with past medical history of hypertension since 1 year presented on Monday due to left upper quadrant abdominal pain which was sharp in nature, 8/10 in intensity, nonradiating, aggravated by walking and relieved by rest. Patient reports the pain started after he jumped into the pool and hit the side rail on his left ribs 2 days ago. Patient denies any, chills, chest pain, jaundice, anorexia, nausea, vomiting, diarrhea, head trauma. He denies any heavy alcohol use, smoking, drug use. Patient seen at bedside. Patient appears comfortable, alert x3. He still complains of left upper quadrant pain on palpation. CT abdomen shows Concentric wall thickening of the proximal descending colon with adjacent fat stranding and phlegmon, suggestive of focal infectious/inflammatory colitis. No discernible abscess identified, Fat stranding and phlegmon adjacent to the pancreatic tail may reflect pancreatitis. Recommend correlation with lipase level. Liver ultrasound shows No sonographic evidence of gallstones or acute cholecystitis, Hepatic steatosis. Trace ascites. GI on board. Objective vital signs Vital Sign Date Time Temp Pulse Resp B/P (MAP) Pulse Ox O2 Delivery O2 Flow Rate FiO2 10/16/24 16:52 97.6 113 18 144/109 (121) 100 97.6 10/16/24 08:10 Room Air* 0 21 Total Intake and Output 10/15/24 10/15/24 10/16/24 15:00 23:00 07:00 Intake Total 1100 ml 600 ml Balance 1100 ml 600 ml medications Current Medications Medications Dose Ordered Sig/Jose Route Start Time Stop Time Status Last Admin Dose Admin Metronidazole 100 ml @ 100 mls/hr Q8H IV 10/15/24 20:30 10/16/24 11:33 100 MLS/HR Ceftriaxone Sodium 50 ml @ 100 mls/hr DAILY@09 IV 10/16/24 09:00 10/16/24 09:00 100 MLS/HR Pantoprazole Sodium 40 mg DAILY IV 10/16/24 10:00 10/16/24 09:00 40 MG Losartan Potassium 25 mg DAILY PO 10/16/24 10:00 Amlodipine Besylate 5 mg DAILY PO 10/16/24 10:00 Acetaminophen/ Hydrocodone Bitart 1 tab Q4HP PRN PO 10/15/24 20:00 10/15/24 23:08 1 TAB Ondansetron HCl 4 mg Q4HP PRN IV 10/15/24 20:00 10/15/24 21:43 4 MG Acetaminophen 650 mg Q6HP PRN PO 10/15/24 20:00 Morphine Sulfate 2 mg Q4HPRN PRN IV 10/15/24 20:00 10/16/24 08:59 2 MG Lactated Ringer's 1,000 ml @ 125 mls/hr Q8H IV 10/16/24 14:00 10/16/24 14:50 125 MLS/HR Examination General: Patient alert and oriented in person, place and time. Patient following commands. HEENT: Normocephalic, atraumatic, moist mucous membranes Respiratory/pulmonary: Clear lungs bilaterally, vesicular murmurs present in almost all lung montgomery, no associated crackles or wheezes. Cardiovascular: Normal heart sounds S1 and S2 with no associated murmurs Abdomen: Abdomen nondistended, there is pain to palpation in left upper Quadrant , no palpable masses. Extremities: There is no peripheral edema present at the lower extremities. Peripheral Pulses: 3+ Radial (R). 3+ Radial (L). 3+ Dorsalis pedis (R). 3+ Dorsalis pedis(L) Skin: No rashes or pruritus, there is no sacral edema present at this time. Neurological: Intact cranial nerves with no focal neurologic deficits laboratory and microbiology Laboratory Tests 10/16/24 05:06 Test 10/16/24 05:06 Range/Units Serum Glucose 129 H 74-106 mg/dL Microbiology Date/Time Source Procedure Growth Status 10/16/24 06:20 Nose MRSA Screen - Final Complete Labs and/or images reviewed: Labs reviewed by me, Image(s) reviewed by me Problem List/Assessment/Plan Problem List/Assessment/Plan # Intractable abdominal pain likely due to pancreatitis # post traumatic pancreatitis - CT abdomen shows Concentric wall thickening of the proximal descending colon with adjacent fat stranding and phlegmon, suggestive of focal infectious/inflammatory colitis. No discernible abscess identified, Fat stranding and phlegmon adjacent to the pancreatic tail may reflect pancreatitis. Recommend correlation with lipase level - pain management, Nar[place] - IV fluids - NPO - lipase 268 -Zofron # Colitis likely infectious - IV Ceftriaxone - IV Metronidazole - GI consulted # Transaminitis -AST 53, ALT 68 - Liver US shows No sonographic evidence of gallstones or acute cholecystitis, Hepatic steatosis. Trace ascites. # HTN -resume home meds PPI PPX: Protonix DVT PPX: ambulatory Goals of care discussed with patient for 23 minutes:Full code Case discussed with Dr. Conley Plan discussed with: Patient Date of Service: Oct 16, 2024 Billing Provider: TOOTIE CONLEY MD Common Visit Codes: [id number] INP/OBS CARE(HIGH) BUD CHANG RESIDENT Oct 16, 2024 17:31 TOOTIE CONLEY MD Oct 16, 2024 22:14
--- NOTE | 2024-10-16 17:35 | DVHPN2 ---
Progress Note - Dictate Date Seen: Oct 16, 2024 Medical Necessity Reason Pt with a Central, PICC or Fol: No Subjective No new complaints, ongoing urinalysis and MRSA swab ongoing vital signs Vital Sign Date Time Temp Pulse Resp B/P (MAP) Pulse Ox O2 Delivery O2 Flow Rate FiO2 10/16/24 16:52 97.6 113 18 144/109 (121) 100 97.6 10/16/24 08:10 Room Air* 0 21 Total Intake and Output 10/15/24 10/15/24 10/16/24 15:00 23:00 07:00 Intake Total 1100 ml 600 ml Balance 1100 ml 600 ml medications Current Medications Medications Dose Ordered Sig/Jose Route Start Time Stop Time Status Last Admin Dose Admin Metronidazole 100 ml @ 100 mls/hr Q8H IV 10/15/24 20:30 10/16/24 11:33 100 MLS/HR Ceftriaxone Sodium 50 ml @ 100 mls/hr DAILY@09 IV 10/16/24 09:00 10/16/24 09:00 100 MLS/HR Pantoprazole Sodium 40 mg DAILY IV 10/16/24 10:00 10/16/24 09:00 40 MG Losartan Potassium 25 mg DAILY PO 10/16/24 10:00 Amlodipine Besylate 5 mg DAILY PO 10/16/24 10:00 Acetaminophen/ Hydrocodone Bitart 1 tab Q4HP PRN PO 10/15/24 20:00 10/15/24 23:08 1 TAB Ondansetron HCl 4 mg Q4HP PRN IV 10/15/24 20:00 10/15/24 21:43 4 MG Acetaminophen 650 mg Q6HP PRN PO 10/15/24 20:00 Morphine Sulfate 2 mg Q4HPRN PRN IV 10/15/24 20:00 10/16/24 08:59 2 MG Lactated Ringer's 1,000 ml @ 125 mls/hr Q8H IV 10/16/24 14:00 10/16/24 14:50 125 MLS/HR objective General: NAD, AAOX3 Chest: lung montgomery clear to auscultation Heart: RRR, no murmur Abdomen: Left upper abdomen tenderness to palpation, +BS laboratory and microbiology Laboratory Tests 10/16/24 05:06 Test 10/16/24 05:06 Range/Units Serum Glucose 129 H 74-106 mg/dL Abd USG IMPRESSION: No sonographic evidence of gallstones or acute cholecystitis. Hepatic steatosis. Trace ascites. Problems(with codes): (1) Pancreatitis (2) Hepatic steatosis Prognosis Plan Liver enzymes are trending down and lipase is also trending down Clear liquid diet advance to full liquid Continue to monitor labs Continue supportive care and pain control Discontinue any alcohol substance abuse Awaiting hepatitis panel Plan discussed with: Other (Silke suggs) SOPHIA MOREAU MD Oct 16, 2024 17:35
[2024-10-16 21:00] VITALS: BP 147/109; PULSE 120; RESP 17; TEMP 97.7; O2SAT 100
[2024-10-17 01:00] VITALS: BP 134/101; PULSE 114; RESP 18; TEMP 99.8; O2SAT 99
[2024-10-17 05:00] VITALS: BP 139/92; PULSE 105; RESP 16; TEMP 98.9; O2SAT 99
[2024-10-17 05:20] LABS: Hematocrit 37.6 % (41.0-53.0); Hemoglobin 12.9 g/dL (13.5-17.5); Mean Corpuscular Hemoglobin 31.3 pg (28.0-32.0); Mean Corpuscular Volume 91.3 fL (80.0-100.0); Nucleated Red Blood Cells % 0.0 %
[2024-10-17 05:43] LABS: Albumin 3.7 g/dL (3.2-4.8); Alkaline Phosphatase 46 U/L (46-116); Anion Gap 8 (5-15); BUN/Creatinine Ratio 11.5 (10.0-20.0); Calcium 8.9 mg/dL (8.7-10.4); Carbon Dioxide 26 mmol/L (20-31); Chloride 101 mmol/L (98-107); Total Protein 5.9 g/dL (5.7-8.2); Triglycerides 132 mg/dL (< 150)
[2024-10-17 05:44] LABS: Cholesterol 104 mg/dL (< 200)
[2024-10-17 05:45] LABS: Bilirubin, Total 0.7 mg/dL (0.2-1.0)
[2024-10-17 05:47] LABS: Alanine Aminotransferase 41 U/L (7-40); Blood Urea Nitrogen 9 mg/dL (9-23); Glucose 120 mg/dL (74-106); HDL Cholesterol 40 mg/dL (40-59); Potassium 3.1 mmol/L (3.5-5.1); Sodium 135 mmol/L (136-145)
[2024-10-17 06:11] LABS: Lipase 354 U/L (12-53)
[2024-10-17] MEDS ORDERED: POTASSIUM CHL 20MEQ/100ML 100 ML IV ONE (06:45)
[2024-10-17] MEDS: POTASSIUM EFFERVESENT TAB 25 MEQ PO ONE (07:01)
--- NOTE | 2024-10-17 08:50 | DVHPNRES ---
Progress Note Date Seen: Oct 17, 2024 Resident Creating Document: BUD CHANG RESIDENT Medical Necessity Reason Pt with a Central, PICC or Fol: No Subjective Review of Systems 39-year-old male with past medical history of hypertension since 1 year presented on Monday due to left upper quadrant abdominal pain which was sharp in nature, 8/10 in intensity, nonradiating, aggravated by walking and relieved by rest. Patient reports the pain started after he jumped into the pool and hit the side rail on his left ribs 2 days ago. Patient denies any, chills, chest pain, jaundice, anorexia, nausea, vomiting, diarrhea, head trauma. He denies any heavy alcohol use, smoking, drug use. Patient seen at bedside. He is alert x3, complains of epigastric and left upper quadrant pain which is 6/10 intensity, and he denies any bowel movement since Monday, nausea, vomiting, headache, dizziness, today lipase has increased to 354. GI was consulted and recommended to supportive care and pain control, change clear liquid diet to full liquid diet and to discontinue any alcohol abuse. Objective vital signs Vital Sign Date Time Temp Pulse Resp B/P (MAP) Pulse Ox O2 Delivery O2 Flow Rate FiO2 10/17/24 05:00 98.9 105 16 139/92 (108) 99 98.9 10/16/24 20:00 Room Air* 0 21 Total Intake and Output 10/16/24 10/16/24 10/17/24 15:00 23:00 07:00 Intake Total 150 ml 400 ml 0 ml Balance 150 ml 400 ml 0 ml medications Current Medications Medications Dose Ordered Sig/Jose Route Start Time Stop Time Status Last Admin Dose Admin Metronidazole 100 ml @ 100 mls/hr Q8H IV 10/15/24 20:30 10/17/24 04:36 100 MLS/HR Ceftriaxone Sodium 50 ml @ 100 mls/hr DAILY@09 IV 10/16/24 09:00 10/16/24 09:00 100 MLS/HR Pantoprazole Sodium 40 mg DAILY IV 10/16/24 10:00 10/16/24 09:00 40 MG Losartan Potassium 25 mg DAILY PO 10/16/24 10:00 Amlodipine Besylate 5 mg DAILY PO 10/16/24 10:00 Acetaminophen/ Hydrocodone Bitart 1 tab Q4HP PRN PO 10/15/24 20:00 10/17/24 07:13 1 TAB Ondansetron HCl 4 mg Q4HP PRN IV 10/15/24 20:00 10/15/24 21:43 4 MG Acetaminophen 650 mg Q6HP PRN PO 10/15/24 20:00 Morphine Sulfate 2 mg Q4HPRN PRN IV 10/15/24 20:00 10/16/24 23:15 2 MG Lactated Ringer's 1,000 ml @ 125 mls/hr Q8H IV 10/16/24 14:00 10/17/24 08:08 125 MLS/HR Examination General: Patient alert and oriented in person, place and time. Patient following commands. HEENT: Normocephalic, atraumatic, moist mucous membranes Respiratory/pulmonary: Clear lungs bilaterally, vesicular murmurs present in almost all lung montgomery, no associated crackles or wheezes. Cardiovascular: Normal heart sounds S1 and S2 with no associated murmurs Abdomen: Abdomen nondistended, Pain to palpation in Left upper Quadrent and Epigastric region, no palpable masses. Extremities: There is no peripheral edema present at the lower extremities. Peripheral Pulses: 3+ Radial (R). 3+ Radial (L). 3+ Dorsalis pedis (R). 3+ Dorsalis pedis(L) Skin: No rashes or pruritus, there is no sacral edema present at this time. Neurological: Intact cranial nerves with no focal neurologic deficits laboratory and microbiology Laboratory Tests 10/17/24 04:45 Test 10/17/24 04:45 Range/Units Serum Glucose 120 H 74-106 mg/dL Microbiology Date/Time Source Procedure Growth Status 10/16/24 06:20 Nose MRSA Screen - Final Complete Problem List/Assessment/Plan Problem List/Assessment/Plan # SIRS Secondary to pancreatitis without organ disfunction # Intractable abdominal pain likely due to pancreatitis # post traumatic pancreatitis - CT abdomen shows Concentric wall thickening of the proximal descending colon with adjacent fat stranding and phlegmon, suggestive of focal infectious/inflammatory colitis. No discernible abscess identified, Fat stranding and phlegmon adjacent to the pancreatic tail may reflect pancreatitis. Recommend correlation with lipase level - pain management, [place] - IV fluids - NPO - lipase 268 - Zofron - Patient changed to full liquid diet # Colitis likely infectious - IV Ceftriaxone - IV Metronidazole - GI consulted # Hypokalemia - given potassium # Transaminitis -AST 53, ALT 68 - Liver US shows No sonographic evidence of gallstones or acute cholecystitis, Hepatic steatosis. Trace ascites. # HTN -resume home meds PPI PPX: Protonix DVT PPX: ambulatory Goals of care discussed with patient for 23 minutes:Full code Case discussed with Dr. Conley Plan discussed with: Patient Date of Service: Oct 17, 2024 Billing Provider: TOOTIE CONLEY MD Common Visit Codes: [id number] INP/OBS CARE(HIGH) BUD CHANG RESIDENT Oct 17, 2024 08:50 TOOTIE CONLEY MD Oct 20, 2024 15:54
[2024-10-17 09:00] VITALS: BP 133/100; PULSE 99; RESP 17; TEMP 98.4; O2SAT 99
[2024-10-17 12:42] VITALS: BP 129/93; PULSE 98; RESP 16; TEMP 98.5; O2SAT 97
[2024-10-17 17:00] VITALS: BP 132/94; PULSE 102; RESP 19; TEMP 98.4; O2SAT 98
[2024-10-17 21:00] VITALS: BP 128/94; PULSE 106; RESP 18; TEMP 98; O2SAT 99
--- NOTE | 2024-10-17 21:27 | DVHPN2 ---
Progress Note - Dictate Date Seen: Oct 17, 2024 Medical Necessity Reason Pt with a Central, PICC or Fol: No Subjective Complains of epigastric and left upper quadrant pain which is 6/10 intensity, and he denies any bowel movement since Monday, lipase has increased to 354. vital signs Vital Sign Date Time Temp Pulse Resp B/P (MAP) Pulse Ox O2 Delivery O2 Flow Rate FiO2 10/17/24 17:00 98.4 102 19 132/94 (107) 98 98.4 10/17/24 08:00 Room Air* 0 21 Total Intake and Output 10/16/24 10/16/24 10/17/24 15:00 23:00 07:00 Intake Total 150 ml 400 ml 0 ml Balance 150 ml 400 ml 0 ml medications Current Medications Medications Dose Ordered Sig/Jose Route Start Time Stop Time Status Last Admin Dose Admin Metronidazole 100 ml @ 100 mls/hr Q8H IV 10/15/24 20:30 10/17/24 20:38 100 MLS/HR Ceftriaxone Sodium 50 ml @ 100 mls/hr DAILY@09 IV 10/16/24 09:00 10/17/24 13:04 100 MLS/HR Pantoprazole Sodium 40 mg DAILY IV 10/16/24 10:00 10/17/24 09:45 40 MG Losartan Potassium 25 mg DAILY PO 10/16/24 10:00 10/17/24 09:45 25 MG Amlodipine Besylate 5 mg DAILY PO 10/16/24 10:00 10/17/24 09:45 5 MG Acetaminophen/ Hydrocodone Bitart 1 tab Q4HP PRN PO 10/15/24 20:00 10/17/24 16:19 1 TAB Ondansetron HCl 4 mg Q4HP PRN IV 10/15/24 20:00 10/15/24 21:43 4 MG Acetaminophen 650 mg Q6HP PRN PO 10/15/24 20:00 Morphine Sulfate 2 mg Q4HPRN PRN IV 10/15/24 20:00 10/16/24 23:15 2 MG Lactated Ringer's 1,000 ml @ 125 mls/hr Q8H IV 10/16/24 14:00 10/17/24 14:08 125 MLS/HR objective General: NAD, AAOX3 Chest: lung montgomery clear to auscultation Heart: RRR, no murmur Abdomen: Left upper abdomen tenderness to palpation, +BS laboratory and microbiology Laboratory Tests 10/17/24 04:45 Test 10/17/24 04:45 Range/Units Serum Glucose 120 H 74-106 mg/dL CT SCAN ABD PELVIS IMPRESSION: 1. Concentric wall thickening of the proximal descending colon with adjacent fat stranding and phlegmon, suggestive of focal infectious/inflammatory colitis. No discernible abscess identified. 2. Fat stranding and phlegmon adjacent to the pancreatic tail may reflect pancreatitis. Recommend correlation with lipase level. Problems(with codes): (1) Colitis (2) Hepatic steatosis (3) Pancreatitis Prognosis PLAN I believe the patient's inflammatory changes of the descending colon and in the tail of the pancreas are part of the same inflammatory process either the primary problem is the pancreatitis that is involving the descending colon or there is descending colon colitis which is affecting the pancreas Either way the patient needs to be on IV fluid hydration and broad-spectrum antibiotics Patient has not had a bowel movement yet, continue to monitor for bowel activity Is lipase level has gone up and I would recommend keeping him NPO for now or only on clear liquids Monitor labs and I will follow up patient with you Patient will likely need elective colonoscopy once medically stabilized Consider repeat imaging in 24-[address] abdomen Plan discussed with: Other (None) SOPHIA MOREAU MD Oct 17, 2024 21:26
[2024-10-17] MEDS: DOCUSATE SOD 100 MG CAP PO SCH (21:57)
[2024-10-18 01:00] VITALS: BP 137/98; PULSE 98; RESP 18; TEMP 98.6; O2SAT 99
[2024-10-18 05:00] VITALS: BP 133/97; PULSE 88; RESP 18; TEMP 98.4; O2SAT 98
[2024-10-18 06:16] LABS: Hematocrit 35.5 % (41.0-53.0); Hemoglobin 12.0 g/dL (13.5-17.5); Mean Corpuscular Hemoglobin 30.8 pg (28.0-32.0); Mean Corpuscular Volume 91.2 fL (80.0-100.0); Nucleated Red Blood Cells % 0.0 %
[2024-10-18 06:24] LABS: Chloride 101 mmol/L (98-107); Sodium 137 mmol/L (136-145)
[2024-10-18 06:25] LABS: Anion Gap 8 (5-15); Calcium 8.8 mg/dL (8.7-10.4); Carbon Dioxide 28 mmol/L (20-31)
[2024-10-18 06:30] LABS: BUN/Creatinine Ratio 7.7 (10.0-20.0); Blood Urea Nitrogen 6 mg/dL (9-23); Glucose 95 mg/dL (74-106); Lipase 235 U/L (12-53); Potassium 3.3 mmol/L (3.5-5.1)
[2024-10-18 09:00] VITALS: BP 128/85; PULSE 88; RESP 16; TEMP 97.3; O2SAT 99
[2024-10-18 10:17] LABS: Hepatitis B Surface Antigen Negative (Negative)
[2024-10-18 10:48] LABS: Hepatitis C Antibody Negative (Negative)
[2024-10-18] MEDS ORDERED: FAMO20TA10 PO (11:15)
[2024-10-18] MEDS ORDERED: AUG875T PO (11:15)
--- NOTE | 2024-10-18 13:56 | DVHDSRES ---
Discharge Summary Date of Admission Resident Creating Document: BUD CHANG Oct 15, 2024 at 19:49 Date of Discharge: Oct 18, 2024 Admitting Diagnosis # Intractable abdominal pain due to pancreatitis Labs/Diagnostic Data: Laboratory Results Test 10/18/24 06:42 10/18/24 05:42 10/18/24 01:50 10/17/24 04:45 Magnesium Level 1.6 mg/dL (1.6-2.6) White Blood Count 8.0 10^3/uL (4.4-10.8) Red Blood Count 3.89 10^6/uL (4.5-5.90) Hemoglobin 12.0 g/dL (13.5-17.5) Hematocrit 35.5 % (41.0-53.0) Mean Corpuscular Volume 91.2 fL (80.0-100.0) Mean Corpuscular Hemoglobin 30.8 pg (28.0-32.0) Mean Corpuscular Hemoglobin Concent 33.8 g/dL (32.0-36.0) Red Cell Distribution Width 15.7 % (11.8-14.3) Platelet Count 252 10^3/uL (140-450) Mean Platelet Volume 8.0 fL (6.9-10.8) Neutrophils (%) (Auto) 73.8 % (37.0-80.0) Lymphocytes (%) (Auto) 12.1 % (10.0-50.0) Monocytes (%) (Auto) 8.8 % (0.0-12.0) Eosinophils (%) (Auto) 5.1 % (0.0-7.0) Basophils (%) (Auto) 0.2 % (0.0-2.0) Neutrophils # (Auto) 5.9 10 ^3/uL (1.6-8.6) Lymphocytes # (Auto) 1.0 10 ^3/uL (0.4-5.4) Monocytes # (Auto) 0.7 10 ^3/uL (0-1.3) Eosinophils # (Auto) 0.4 10 ^3/uL (0-0.8) Basophils # (Auto) 0 10 ^3/uL (0-0.2) Nucleated Red Blood Cells 0.0 % Sodium Level 137 mmol/L (136-145) Potassium Level 3.3 mmol/L (3.5-5.1) Chloride Level 101 mmol/L (98-107) Carbon Dioxide Level 28 mmol/L (20-31) Anion Gap 8 (5-15) Blood Urea Nitrogen 6 mg/dL (9-23) Creatinine 0.78 mg/dL (0.700-1.30) Glomerular Filtration Rate Calc 117 mL/min (>90) BUN/Creatinine Ratio 7.7 (10.0-20.0) Serum Glucose 95 mg/dL (74-106) Calcium Level 8.8 mg/dL (8.7-10.4) Lipase 235 U/L (12-53) Stool Occult Blood Negative (Negative) Stool Occult Blood Sample #3 (Negative) Stool for White Cells Rare Total Bilirubin 0.7 mg/dL (0.2-1.0) Aspartate Amino Transferase (AST) 30 U/L (13-40) Alanine Aminotransferase (ALT) 41 U/L (7-40) Alkaline Phosphatase 46 U/L (46-116) Total Protein 5.9 g/dL (5.7-8.2) Albumin 3.7 g/dL (3.2-4.8) Triglycerides Level 132 mg/dL (< 150) Cholesterol Level 104 mg/dL (< 200) LDL Cholesterol 46 mg/dL (< 100) HDL Cholesterol 40 mg/dL (40-59) Hepatitis A IgM Antibody Negative Hepatitis B Surface Antigen Negative (Negative) Hepatitis B Core IgM Antibody Negative (Negative) Hepatitis C Antibody Negative (Negative) Test 10/16/24 15:02 10/16/24 05:06 Urine Color Light-orange (Yellow) Urine Clarity Clear (Clear) Urine pH 6.0 (5.0-9.0) Urine Specific Lyles 1.020 (1.001-1.035) Urine Protein 1+ (Negative) Urine Ketones Negative (Negative) Urine Blood Negative /uL (Negative) Urine Nitrite Negative (Negative) Urine Bilirubin Negative (Negative) Urine Urobilinogen Normal mg/dL (Negative) Urine Leukocyte Esterase Negative /uL (Negative) Urine RBC 1 /hpf (0 - 3) Urine Microscopic WBC 3 /HPF (0-3) Urine Squamous Epithelial Cells None seen /hpf (<5) Urine Bacteria None seen /hpf (None Seen) Urine Mucus Few (None Seen) Urine Glucose 1+ mg/dL (Normal) Lactic Acid Level 1.9 mmol/L (0.4-2.0) Direct Bilirubin 0.4 mg/dL (<0.3) Other Laboratory Tests 10/18/24 05:42 Brief Hx & Hospital Course: 39-year-old male with past medical history of hypertension since 1 year presented on Monday due to left upper quadrant abdominal pain which was sharp in nature, 8/10 in intensity, nonradiating, aggravated by walking and relieved by rest. Patient reports the pain started after he jumped into the pool and hit the side rail on his left ribs 2 days ago. Patient denies any, chills, chest pain, jaundice, anorexia, nausea, vomiting, diarrhea, head trauma. He denies any heavy alcohol use, smoking, drug use. Patient had not had a bowel movement since Monday and complained of nausea, vomiting, headache, dizziness and lipase decreased to 235. GI was consulted and recommended to provide supportive care and pain control, change clear liquid diet to full liquid diet and discontinue any alcohol abuse. brief hospital course: For posttraumatic pancreatitis and intractable abdominal pain likely due to pancreatitis IV fluids were given, pain was managed with Joseph, patient was NPO, Zofran was given and initially lipase was 268 CT abdomen shows Concentric wall thickening of the proximal descending colon with adjacent fat stranding and phlegmon, suggestive of focal infectious/inflammatory colitis. No discernible abscess identified, Fat stranding and phlegmon adjacent to the pancreatic tail may reflect pancreatitis. Recommend correlation with lipase level. patient was changed to full liquid diet and then regular diet and tolerated well. For colitis IV ceftriaxone, IV metronidazole was given GI was consulted and advised if he was tolerating regular diet well to discharge. For hypokalemia potassium was given and corrected. Patient had mild transaminitis AST 53, ALT 68. liver ultrasound shows No sonographic evidence of gallstones or acute cholecystitis, Hepatic steatosis. Trace ascites. For his hypertension patient was advised to resume home medications. Patient was on PPI prophylaxis with Protonix, and was ambulatory. Patient was stable for discharge did not have any pain, nausea, vomiting, diarrhea, and he communicated understanding of his condition and that he had to follow-up with PCP in 1-2 weeks. General: Patient alert and oriented in person, place and time. Patient following commands. HEENT: Normocephalic, atraumatic, moist mucous membranes Respiratory/pulmonary: Clear lungs bilaterally, vesicular murmurs present in almost all lung montgomery, no associated crackles or wheezes. Cardiovascular: Normal heart sounds S1 and S2 with no associated murmurs Abdomen: Abdomen nondistended, there is no pain to palpation in any of the abdominal quadrants, no palpable masses. Extremities: There is no peripheral edema present at the lower extremities. Peripheral Pulses: 3+ Radial (R). 3+ Radial (L). 3+ Dorsalis pedis (R). 3+ Dorsalis pedis(L) Skin: No rashes or pruritus, there is no sacral edema present at this time. Neurological: Intact cranial nerves with no focal neurologic deficits Operations or Procedures INDICATION: elevated LFTs TECHNIQUE: Multiple real-time sonographic images were obtained of the right upper quadrant. COMPARISON: None FINDINGS: The liver demonstrates increased echotexture without focal mass lesions. The liver measures 17 cm. There is no intrahepatic or extrahepatic ductal dilatation. The common duct measures 5 mm. Trace ascites. The gallbladder is without evidence of stone or sludge. The gallbladder wall measures 2 mm and is within normal limits. The right kidney measures 9.3 cm. The right kidney is normal in contour, size, and shape. The echogenicity is normal. There is no hydronephrosis. The pancreas is not well visualized due to overlying bowel gas. IMPRESSION: No sonographic evidence of gallstones or acute cholecystitis. Hepatic steatosis. Trace ascites. Exam: CT CT AB PEL WO CON-NO ORAL OR IV History: abd pain Comparison Study: None Technique: Multidetector spiral CT of the abdomen was performed from lung bases to pubic symphysis. Imaging was performed without IV contrast. Axial, coronal and sagittal multiplanar reformats were obtained from the axial data set by the technologist. Radiation Dose : 1. Abdomen/Pelvis: CTDIvol 262.25 mGy, DLP 254.41 mGy*cm. Findings: Evaluation of solid organs is limited due to lack of intravenous contrast use. Lung Bases: No acute or significant lung base finding. Normal heart size. No pleural or pericardial effusion. Liver: The liver is normal in size. No focal lesions. Gallbladder and Biliary Tree: Unremarkable Spleen: Unremarkable Pancreas: Fat stranding and phlegmon adjacent to the pancreatic tail may reflect pancreatitis. Adrenal Glands: Unremarkable Kidneys: Kidneys are grossly normal without calculi or hydronephrosis. Bladder: Grossly unremarkable for degree of distention. Bowel: The stomach is grossly normal in appearance. No evidence of bowel obstruction. Concentric wall thickening of the proximal descending colon with adjacent fat stranding and phlegmon, suggestive of focal infectious/inflammatory colitis. No discernible abscess identified. The appendix is not visualized; however, no secondary findings of acute appendicitis identified. Ascites: Absent Lymphadenopathy: No mesenteric, retroperitoneal or periportal lymphadenopathy. Abdominal Wall and Mesentery: Unremarkable. Vasculature: The visualized abdominal aorta is normal in size and caliber. Evaluation of abdominal and pelvic vessels is limited due to lack of intravenous contrast. Pelvic Organs: Unremarkable Musculoskeletal: No aggressive focal bony lesions, acute fractures or dislocation. IMPRESSION: 1. Concentric wall thickening of the proximal descending colon with adjacent fat stranding and phlegmon, suggestive of focal infectious/inflammatory colitis. No discernible abscess identified. 2. Fat stranding and phlegmon adjacent to the pancreatic tail may reflect pancreatitis. Recommend correlation with lipase level. Radiation optimization: All CT scans at this facility use at least one of these dose optimization techniques: automated exposure control mA and/or kV adjustment per patient size (includes targeted exams where dose is matched to clinical indication) or iterative reconstruction. Condition at Discharge: Stable Final Diagnosis/Problems List # SIRS Secondary to pancreatitis without organ disfunction # Intractable abdominal pain due to pancreatitis # post traumatic pancreatitis # Colitis likely infectious # Hypokalemia # Transaminitis # Hypertension Discharge Disposition: Home Discharge Instruct/Medications Diet: Regular Activity: No Restrictions, As Tolerated Follow Up/Referral: follow up with PCP and in 1-2 weeks Medications: As per EMR Scheduled Amlodipine Besylate (Amlodipine Besylate), 1 TAB PO DAILY Amoxicillin & Pot Clavulanate (Augmentin Tablet), 875 MG PO BID Famotidine (Pepcid Tablet), 1 TAB PO BID Famotidine (Pepcid Tablet), 1 TAB PO BID Losartan Potassium (Losartan Potassium), 1 TAB PO DAILY Scheduled PRN Alum & Mag Hydrox-Simethicone (Maalox Plus), 30 ML PO Q8HR PRN Discontinued Medications Amlodipine Besylate (Amlodipine Besylate), Unknown Dose PO DAILY, (Reported) Discharge Statement: "Patient was advised to return to the ER or call 911 if any headaches, dizziness, shortness of breath, chest pain, abdominal pain, bleeding, fevers, or worsening of medical condition. Patient was counseled about treatment plan, medications, possible side effects, patientverbalized understanding. All questions were answered to the best of my ability. This discharge took greater then 30 minutes in planning, reviewing documentation, counseling the patient, and discussing with other team members." ASSESSMENT ASSESSMENT Assessment #Intractable abdominal pain likely due to pancreatitis Date of Service: Oct 18, 2024 Billing Provider: TOOTIE CONLEY MD Common Visit Codes: 51772-KJW/OBS DISCH DAY >30min BUD CHANG Oct 18, 2024 13:56 TOOTIE CONLEY MD Oct 20, 2024 16:05
[2024-10-18] MEDS: POTASSIUM EFFERVESENT TAB 25 MEQ PO ONE (14:32)
[2024-10-18 14:49] VITALS: BP 128/85; TEMP 36.3
--- NOTE | 2024-10-18 16:18 | DVHPN2 ---
Progress Note - Dictate Date Seen: Oct 18, 2024 Medical Necessity Reason Pt with a Central, PICC or Fol: No Subjective Patient seen at bedside ambulating with his pull He has left upper quadrant pain and epigastric pain have improved He has had multiple bowel movements Patient states he does not drink alcohol and his pancreas and colon got inflamed because of his fall lipase has decreased to 234 vital signs Vital Sign Date Time Temp Pulse Resp B/P (MAP) Pulse Ox O2 Delivery O2 Flow Rate FiO2 10/18/24 14:49 36.3 10/18/24 09:31 128/85 10/18/24 09:00 88 16 99 10/18/24 08:17 Room Air* 0 21 Total Intake and Output 10/17/24 10/17/24 10/18/24 15:00 23:00 07:00 Intake Total 1550 ml 1100 ml Output Total 4 ml Balance 1550 ml 1096 ml medications Current Medications Medications Dose Ordered Sig/Jose Route Start Time Stop Time Status Last Admin Dose Admin Metronidazole 100 ml @ 100 mls/hr Q8H IV 10/15/24 20:30 10/18/24 04:42 100 MLS/HR Ceftriaxone Sodium 50 ml @ 100 mls/hr DAILY@09 IV 10/16/24 09:00 10/18/24 09:29 100 MLS/HR Pantoprazole Sodium 40 mg DAILY IV 10/16/24 10:00 10/18/24 09:30 40 MG Losartan Potassium 25 mg DAILY PO 10/16/24 10:00 10/18/24 09:30 25 MG Amlodipine Besylate 5 mg DAILY PO 10/16/24 10:00 10/18/24 09:31 5 MG Acetaminophen/ Hydrocodone Bitart 1 tab Q4HP PRN PO 10/15/24 20:00 10/18/24 04:48 1 TAB Ondansetron HCl 4 mg Q4HP PRN IV 10/15/24 20:00 10/15/24 21:43 4 MG Acetaminophen 650 mg Q6HP PRN PO 10/15/24 20:00 Morphine Sulfate 2 mg Q4HPRN PRN IV 10/15/24 20:00 10/16/24 23:15 2 MG Lactated Ringer's 1,000 ml @ 125 mls/hr Q8H IV 10/16/24 14:00 10/18/24 05:56 125 MLS/HR Docusate Sodium 100 mg BID PO 10/17/24 22:00 10/18/24 09:30 100 MG objective General: NAD, AAOX3 Chest: lung montgomery clear to auscultation Heart: RRR, no murmur Abdomen: Left upper abdomen tenderness to palpation, +BS laboratory and microbiology Laboratory Tests 10/18/24 05:42 Test 10/18/24 05:42 Range/Units Serum Glucose 95 74-106 mg/dL Problems(with codes): (1) Colitis (2) Hepatic steatosis (3) Pancreatitis Prognosis Plan Patient will be better by staying on a full liquid diet then soft diet for a couple of days Discharge planning is in progress Patient was given my contact information to follow up in my office as an outpatient to continue observation management of his pancreatitis and consider elective screening colonoscopy Plan discussed with: Patient SOPHIA MOREAU MD Oct 18, 2024 16:18
== END 2024-10-18 16:15 | disposition home or self-care (01) | DRG 439 ==
LOC: ER 16:42 → OVERFLOW 19:49 → TELE-WESTW 22:08 → WEST WING 10-16 08:18
PROVIDERS: ADMIT Student in an Organized Health Care Education/Training Program; ATTEND Nurse Practitioner Family
DX: K85.90 Acute pancreatitis without necrosis or infection, unspecified (principal); A09 Infectious gastroenteritis and colitis, unspecified; R65.10 Systemic inflammatory response syndrome (SIRS) of non-infectious origin without acute organ dysfunction; K76.0 Fatty (change of) liver, not elsewhere classified; I10 Essential (primary) hypertension; F41.9 Anxiety disorder, unspecified; E87.6 Hypokalemia; R74.01 Elevation of levels of liver transaminase levels
CPT/HCPCS: 36415; 74176; 76705; 80048; 80053; 80061; 80074; 80076; 81001; 82270; 83605; 83690; 83735; 85025; 85048; 87081; 93005; 96361; 96374; G0378; J2405; J2470; J3490